=== PATIENT | female | born 1940 | race Caucasian/White ===

== ENCOUNTER → 2017-06-09 | Outpatient (CLI) | payer OTHER ==
[~2017-06-09] MED LIST: ACCUPRIL20 MG PO; LOMOTIL 0.025 M1 TA1 PO; LOZOL2.5 MG PO; QUINAPRIL20 MG PO; VERELAN SR 240240 MG PO
[2017-06-09 09:57] LABS: BASO % 0.6 % (0.0-1.0); EOS # 0.2 10*3/uL (0.0-0.4); HEMATOCRIT 34.3 % (37.0-47.0); HEMOGLOBIN 11.4 g/dl (12.0-16.0); LYMPH # 1.3 10*3/uL (1.3-4.4); LYMPH % 25.9 % (27.0-41.0); MEAN CELL VOLUME 90.7 fl (81.0-99.0); MEAN CORPUSCULAR HGB 30.2 pg (27.0-31.0); MEAN CORPUSCULAR HGB CONC 33.2 g/dl (33.0-37.0); MEAN PLATELET VOLUME 9.3 fl (9.6-12.3); MONO # 0.4 10*3/uL (0.1-1.0); MONO % 7.1 % (3.0-9.0); NEUT # 3.1 10*3/uL (2.3-7.9); PLATELET COUNT AUTOMATED 201 10*3/uL (130-400); RED BLOOD COUNT 3.78 10*6/uL (4.10-5.10); RED CELL DISTRI WIDTH 13.3 % (0-14.5)
[2017-06-09 10:11] LABS: ALBUMIN 3.9 gm/dl (3.1-4.5); ALKALINE PHOSPHATASE 59 U/L (45-117); BILIRUBIN, DIRECT 0.1 mg/dL (0.0-0.2); BILIRUBIN, TOTAL 0.6 mg/dl (0.2-1.0); BUN 16 mg/dl (7-24); CARBON DIOXIDE 29 mmol/L (21-32); CHLORIDE 106 mmol/L (98-107); CHOLESTEROL 156 mg/dL (<200); EST GLOM FILT AFRICAN AMERICAN > 60 ml/min; GLUCOSE 97 mg/dL (65-99); HDL CHOLESTEROL 61 mg/dl (40-60); LDL CHOLESTEROL 71 mg/dL (9-159); POTASSIUM 3.8 mmol/L (3.5-5.1); SGOT/AST 21 IU/L (3-35); SGPT/ALT 22 U/L (12-78); SODIUM 140 mmol/L (136-145); THYROXINE (T4) TOTAL 11.7 ug/dl (4.8-13.9); TOTAL PROTEIN 7.5 gm/dL (6.4-8.2); TRIGLYCERIDES 120 mg/dl (<150); VLDL CHOLESTEROL 24 mg/dL (6-40)
== END | disposition home or self-care (01) ==
LOC: LAB 09:14
PROVIDERS: Family Medicine
DX: Z00.01 Encounter for general adult medical examination with abnormal findings (principal); I10 Essential (primary) hypertension

== ENCOUNTER → 2017-07-25 | Outpatient (CLI) | payer OTHER ==
[2017-07-25 09:17] LABS: BASO % 0.6 % (0.0-1.0); EOS # 0.2 10*3/uL (0.0-0.4); EOS % 4.1 % (1.0-4.0); HEMATOCRIT 34.8 % (37.0-47.0); HEMOGLOBIN 11.6 g/dl (12.0-16.0); LYMPH # 1.1 10*3/uL (1.3-4.4); LYMPH % 21.6 % (27.0-41.0); MEAN CELL VOLUME 91.6 fl (81.0-99.0); MEAN CORPUSCULAR HGB 30.5 pg (27.0-31.0); MEAN CORPUSCULAR HGB CONC 33.3 g/dl (33.0-37.0); MEAN PLATELET VOLUME 9.2 fl (9.6-12.3); MONO # 0.3 10*3/uL (0.1-1.0); MONO % 6.4 % (3.0-9.0); NEUT # 3.4 10*3/uL (2.3-7.9); NEUT % 66.7 % (47.0-73.0); PLATELET COUNT AUTOMATED 194 10*3/uL (130-400); RED CELL DISTRI WIDTH 13.2 % (0-14.5); WHITE BLOOD COUNT 5.2 10*3/uL (4.8-10.8)
[2017-07-25 09:24] LABS: CREATININE 1.1 mg/dL (0.55-1.02); POTASSIUM 3.7 mmol/L (3.5-5.1)
== END | disposition home or self-care (01) ==
LOC: LAB 08:27
PROVIDERS: Family Medicine
DX: N28.9 Disorder of kidney and ureter, unspecified (principal); D64.9 Anemia, unspecified

== ENCOUNTER → 2017-09-15 | Outpatient (CLI) | payer OTHER ==
[2017-09-15 09:37] LABS: BASO # 0.1 10*3/uL (0.0-0.1); EOS # 0.2 10*3/uL (0.0-0.4); EOS % 3.5 % (1.0-4.0); HEMATOCRIT 35.1 % (37.0-47.0); HEMOGLOBIN 11.6 g/dl (12.0-16.0); LYMPH % 21.6 % (27.0-41.0); MEAN CELL VOLUME 91.6 fl (81.0-99.0); MEAN CORPUSCULAR HGB 30.3 pg (27.0-31.0); MEAN PLATELET VOLUME 8.7 fl (9.6-12.3); MONO # 0.3 10*3/uL (0.1-1.0); MONO % 6.2 % (3.0-9.0); NEUT # 3.3 10*3/uL (2.3-7.9); NEUT % 67.5 % (47.0-73.0); PLATELET COUNT AUTOMATED 161 10*3/uL (130-400); RED BLOOD COUNT 3.83 10*6/uL (4.10-5.10); RED CELL DISTRI WIDTH 13.2 % (0-14.5); WHITE BLOOD COUNT 4.8 10*3/uL (4.8-10.8)
[2017-09-15 09:53] LABS: BUN 15 mg/dl (7-24); CHLORIDE 106 mmol/L (98-107); CREATININE 0.91 mg/dL (0.55-1.02); SODIUM 140 mmol/L (136-145); TOTAL IRON BINDING CAPACITY 425 ug/dl (250-450)
== END | disposition home or self-care (01) ==
LOC: LAB 09:03
PROVIDERS: Family Medicine
DX: D64.9 Anemia, unspecified (principal); N28.9 Disorder of kidney and ureter, unspecified

== ENCOUNTER → 2017-12-24 | Outpatient (CLI) | payer OTHER ==
[2017-12-24 08:59] LABS: BASO % 0.7 % (0.0-1.0); EOS # 0.2 10*3/uL (0.0-0.4); EOS % 3.5 % (1.0-4.0); HEMOGLOBIN 11.5 g/dl (12.0-16.0); LYMPH # 0.9 10*3/uL (1.3-4.4); MEAN CELL VOLUME 92.3 fl (81.0-99.0); MEAN CORPUSCULAR HGB 30.3 pg (27.0-31.0); MEAN CORPUSCULAR HGB CONC 32.9 g/dl (33.0-37.0); MEAN PLATELET VOLUME 9.2 fl (9.6-12.3); MONO # 0.3 10*3/uL (0.1-1.0); MONO % 6.9 % (3.0-9.0); NEUT # 2.9 10*3/uL (2.3-7.9); NEUT % 67.4 % (47.0-73.0); PLATELET COUNT AUTOMATED 154 10*3/uL (130-400); RED BLOOD COUNT 3.79 10*6/uL (4.10-5.10); RED CELL DISTRI WIDTH 12.9 % (0-14.5); WHITE BLOOD COUNT 4.3 10*3/uL (4.8-10.8)
[2017-12-24 09:29] LABS: ALBUMIN 3.8 gm/dl (3.1-4.5); BUN 15 mg/dl (7-24); CHLORIDE 103 mmol/L (98-107); POTASSIUM 3.6 mmol/L (3.5-5.1); SODIUM 140 mmol/L (136-145)
[2017-12-24 09:33] LABS: ALKALINE PHOSPHATASE 66 U/L (45-117); BILIRUBIN, DIRECT 0.1 mg/dL (0.0-0.2); CREATININE 0.89 mg/dL (0.55-1.02); SGOT/AST 18 IU/L (3-35); SGPT/ALT 21 U/L (12-78); TOTAL IRON BINDING CAPACITY 377 ug/dl (250-450); TOTAL PROTEIN 7.3 gm/dL (6.4-8.2)
== END | disposition home or self-care (01) ==
LOC: LAB 08:38
PROVIDERS: Family Medicine
DX: I10 Essential (primary) hypertension (principal); D64.9 Anemia, unspecified

== ENCOUNTER 2018-02-12 17:26 | Inpatient (IN) | payer OTHER ==
[~2018-02-12] VITALS: Ht 162.5 cm; Wt 68.0 kg
[2018-02-12 17:28] VITALS: BP 218/110
[2018-02-12 17:57] LABS: BASO % 0.5 % (0.0-1.0); EOS # 0.1 10*3/uL (0.0-0.4); EOS % 0.9 % (1.0-4.0); HEMATOCRIT 40.8 % (37.0-47.0); HEMOGLOBIN 14.2 g/dl (12.0-16.0); LYMPH % 11.3 % (27.0-41.0); MEAN CELL VOLUME 88.9 fl (81.0-99.0); MEAN CORPUSCULAR HGB 30.9 pg (27.0-31.0); MEAN CORPUSCULAR HGB CONC 34.8 g/dl (33.0-37.0); MEAN PLATELET VOLUME 9.4 fl (9.6-12.3); MONO # 0.3 10*3/uL (0.1-1.0); MONO % 3.4 % (3.0-9.0); NEUT # 7.3 10*3/uL (2.3-7.9); NEUT % 83.7 % (47.0-73.0); PLATELET COUNT AUTOMATED 193 10*3/uL (130-400); RED BLOOD COUNT 4.59 10*6/uL (4.10-5.10); RED CELL DISTRI WIDTH 12.7 % (0-14.5); WHITE BLOOD COUNT 8.8 10*3/uL (4.8-10.8)
[2018-02-12 18:14] LABS: ACT PARTIAL THROMBO TIME 21.4 SECONDS (20.8-31.5); INTERNATIONAL NORM RATIO 0.9 (2.0-3.5)
[2018-02-12 18:15] LABS: ALBUMIN 4.7 gm/dl (3.1-4.5); ALKALINE PHOSPHATASE 80 U/L (45-117); BUN 16 mg/dl (7-24); CHLORIDE 101 mmol/L (98-107); CREATININE 0.99 mg/dL (0.55-1.02); LIPASE 204 U/L (73-393); POTASSIUM 3.5 mmol/L (3.5-5.1); SGOT/AST 22 IU/L (3-35); SGPT/ALT 20 U/L (12-78); SODIUM 137 mmol/L (136-145); TOTAL PROTEIN 8.3 gm/dL (6.4-8.2)
[2018-02-12 18:18] LABS: TROPONIN I < 0.015 ng/ml (<0.045)
[2018-02-12 18:54] VITALS: BP 200/108
[2018-02-12 19:23] VITALS: BP 204/104
[2018-02-12 20:04] VITALS: BP 91/50
[2018-02-12 20:20] VITALS: BP 187/92
[2018-02-12 20:25] VITALS: BP 152/88
[2018-02-13] VITALS (9 sets, daily range): BP systolic 150–224; BP diastolic 65–120
[2018-02-13 08:00] LABS: HEMATOCRIT 41.2 % (37.0-47.0); HEMOGLOBIN 13.7 g/dl (12.0-16.0); MEAN CELL VOLUME 91.6 fl (81.0-99.0); MEAN CORPUSCULAR HGB 30.4 pg (27.0-31.0); MEAN CORPUSCULAR HGB CONC 33.3 g/dl (33.0-37.0); MEAN PLATELET VOLUME 9.7 fl (9.6-12.3); PLATELET COUNT AUTOMATED 180 10*3/uL (130-400); RED CELL DISTRI WIDTH 13.1 % (0-14.5); WHITE BLOOD COUNT 9.8 10*3/uL (4.8-10.8)
[2018-02-13 08:27] LABS: PLATELET SUFFICIENCY NORMAL (NORMAL); TOTAL CELLS COUNTED 100 #CELLS
[2018-02-13 08:28] LABS: BUN 18 mg/dl (7-24); CHLORIDE 102 mmol/L (98-107); CHOLESTEROL 190 mg/dL (<200); CREATININE 0.93 mg/dL (0.55-1.02); PHOSPHOROUS 3.4 mg/dL (2.5-4.9); POTASSIUM 3.8 mmol/L (3.5-5.1); SODIUM 138 mmol/L (136-145); TRIGLYCERIDES 75 mg/dl (<150); VLDL CHOLESTEROL 15 mg/dL (6-40)
[2018-02-13 08:38] LABS: HDL CHOLESTEROL 78 mg/dl (40-60); LDL CHOLESTEROL 97 mg/dL (9-159)
[2018-02-13 08:55] LABS: VITAMIN D, 25-HYDROXY 43.5 ng/mL (30-100)
[2018-02-13 11:56] LABS: BILIRUBIN NEGATIVE (NEGATIVE); BLOOD NEGATIVE (NEGATIVE); CLARITY CLEAR (CLEAR); COLOR YELLOW (YELLOW); GLUCOSE NEGATIVE (NEGATIVE); KETONE TRACE (NEGATIVE); LEUKO ESTERASE NEGATIVE (NEGATIVE); NITRITE NEGATIVE (NEGATIVE); PH 5.5 (5.0-9.0); SPECIFIC GRAVITY >= 1.030 (1.005-1.030); UROBILINOGEN 0.2 E.U./dl (0.2-1.0)
[2018-02-13 12:14] LABS: BACTERIA TRACE; MUCOUS TRACE; YEAST TRACE
[2018-02-14] VITALS (11 sets, daily range): BP systolic 164–196; BP diastolic 82–98
[2018-02-14 07:26] LABS: BASO % 0.1 % (0.0-1.0); EOS % 0.2 % (1.0-4.0); HEMATOCRIT 37.5 % (37.0-47.0); HEMOGLOBIN 12.4 g/dl (12.0-16.0); LYMPH % 9.5 % (27.0-41.0); MEAN CELL VOLUME 91.9 fl (81.0-99.0); MEAN CORPUSCULAR HGB 30.4 pg (27.0-31.0); MEAN CORPUSCULAR HGB CONC 33.1 g/dl (33.0-37.0); MEAN PLATELET VOLUME 9.4 fl (9.6-12.3); MONO # 0.6 10*3/uL (0.1-1.0); MONO % 6.2 % (3.0-9.0); NEUT # 8.4 10*3/uL (2.3-7.9); NEUT % 83.6 % (47.0-73.0); PLATELET COUNT AUTOMATED 172 10*3/uL (130-400); RED BLOOD COUNT 4.08 10*6/uL (4.10-5.10); RED CELL DISTRI WIDTH 13.5 % (0-14.5)
[2018-02-14 07:36] LABS: BUN 22 mg/dl (7-24); CHLORIDE 104 mmol/L (98-107); CREATININE 0.85 mg/dL (0.55-1.02); POTASSIUM 3.6 mmol/L (3.5-5.1); SODIUM 141 mmol/L (136-145)
[2018-02-15] VITALS: BP 160/100; BP 187/92; BP 192/90
[2018-02-15 08:00] VITALS: BP 158/78
[2018-02-15 08:14] LABS: BASO % 0.3 % (0.0-1.0); EOS % 0.3 % (1.0-4.0); HEMATOCRIT 34.5 % (37.0-47.0); HEMOGLOBIN 11.2 g/dl (12.0-16.0); LYMPH # 1.3 10*3/uL (1.3-4.4); LYMPH % 14.2 % (27.0-41.0); MEAN CELL VOLUME 93.8 fl (81.0-99.0); MEAN CORPUSCULAR HGB 30.4 pg (27.0-31.0); MEAN CORPUSCULAR HGB CONC 32.5 g/dl (33.0-37.0); MEAN PLATELET VOLUME 9.6 fl (9.6-12.3); MONO # 0.7 10*3/uL (0.1-1.0); MONO % 7.5 % (3.0-9.0); NEUT # 6.8 10*3/uL (2.3-7.9); NEUT % 77.2 % (47.0-73.0); PLATELET COUNT AUTOMATED 154 10*3/uL (130-400); RED BLOOD COUNT 3.68 10*6/uL (4.10-5.10); RED CELL DISTRI WIDTH 13.6 % (0-14.5); WHITE BLOOD COUNT 8.8 10*3/uL (4.8-10.8)
[2018-02-15 08:42] LABS: ALBUMIN 3.7 gm/dl (3.1-4.5); BUN 21 mg/dl (7-24); CHLORIDE 109 mmol/L (98-107); CREATININE 0.79 mg/dL (0.55-1.02); PHOSPHOROUS 1.7 mg/dL (2.5-4.9); POTASSIUM 3.3 mmol/L (3.5-5.1); SGOT/AST 25 IU/L (3-35); SGPT/ALT 38 U/L (12-78); SODIUM 145 mmol/L (136-145); TOTAL PROTEIN 6.7 gm/dL (6.4-8.2)
[2018-02-15 08:43] LABS: ALKALINE PHOSPHATASE 78 U/L (45-117)
[2018-02-15 12:00] VITALS: BP 160/80
[2018-02-15 16:00] VITALS: BP 164/70
[2018-02-15 20:00] VITALS: BP 170/70
[2018-02-16] VITALS: BP 176/75
[2018-02-16 01:26] VITALS: BP 160/80
[2018-02-16 07:27] LABS: BASO % 0.5 % (0.0-1.0); EOS # 0.2 10*3/uL (0.0-0.4); EOS % 2.8 % (1.0-4.0); HEMATOCRIT 33.5 % (37.0-47.0); HEMOGLOBIN 11.1 g/dl (12.0-16.0); LYMPH # 1.4 10*3/uL (1.3-4.4); LYMPH % 23.5 % (27.0-41.0); MEAN CELL VOLUME 92.8 fl (81.0-99.0); MEAN CORPUSCULAR HGB 30.7 pg (27.0-31.0); MEAN CORPUSCULAR HGB CONC 33.1 g/dl (33.0-37.0); MONO # 0.5 10*3/uL (0.1-1.0); MONO % 7.7 % (3.0-9.0); NEUT # 3.9 10*3/uL (2.3-7.9); NEUT % 65.2 % (47.0-73.0); PLATELET COUNT AUTOMATED 136 10*3/uL (130-400); RED BLOOD COUNT 3.61 10*6/uL (4.10-5.10); RED CELL DISTRI WIDTH 12.8 % (0-14.5)
[2018-02-16 07:54] LABS: BUN 18 mg/dl (7-24); CHLORIDE 107 mmol/L (98-107); CREATININE 0.85 mg/dL (0.55-1.02); POTASSIUM 2.7 mmol/L (3.5-5.1); SODIUM 142 mmol/L (136-145)
[2018-02-16 08:00] VITALS: BP 210/90
[2018-02-16 12:00] VITALS: BP 170/86
[2018-02-16] MEDS ORDERED: APRESOLINE25 MG PO (12:45)
[2018-02-16] MEDS ORDERED: POTASSIUM CHLO20 ME3 PO (12:45)
[2018-02-16 14:00] VITALS: BP 172/92
== END 2018-02-16 15:31 | disposition home or self-care (01) | DRG 389 ==
LOC: ED 17:26 → 4E 18:18 → EDHOLD 18:18 → 4E 19:05
PROVIDERS: Emergency Medicine; Family Medicine; Internal Medicine; Student in an Organized Health Care Education/Training Program
PROC: 0D9670Z Drainage of Stomach with Drainage Device, Via Natural or Artificial Opening (ICD-10-PCS; principal; 2018-02-12)
DX: K56.609 Unspecified intestinal obstruction, unspecified as to partial versus complete obstruction (principal); E87.2 Acidosis; Z79.899 Other long term (current) drug therapy; D72.810 Lymphocytopenia; D72.9 Disorder of white blood cells, unspecified; I10 Essential (primary) hypertension; R73.9 Hyperglycemia, unspecified; I16.0 Hypertensive urgency; E87.6 Hypokalemia; D64.9 Anemia, unspecified; Z90.89 Acquired absence of other organs; Z82.49 Family history of ischemic heart disease and other diseases of the circulatory system; Z91.041 Radiographic dye allergy status

== ENCOUNTER 2018-02-19 10:53 | Emergency (ER) | payer OTHER ==
[~2018-02-19] VITALS: Ht 162.5 cm; Wt 69.4 kg
== END 2018-02-19 12:39 | disposition home or self-care (01) ==
LOC: ED 10:53
DX: I10 Essential (primary) hypertension (principal); Z90.89 Acquired absence of other organs; Z79.899 Other long term (current) drug therapy

== ENCOUNTER → 2018-02-19 | Outpatient (CLI) | payer OTHER ==
[~2018-02-19] MED LIST changes: +APRESOLINE25 MG PO; +POTASSIUM CHLO20 ME3 PO
[2018-02-19 10:28] LABS: BUN 15 mg/dl (7-24); CHLORIDE 104 mmol/L (98-107); CREATININE 0.93 mg/dL (0.55-1.02); POTASSIUM 3.2 mmol/L (3.5-5.1); SODIUM 141 mmol/L (136-145)
== END | disposition home or self-care (01) ==
LOC: LAB 09:20
PROVIDERS: Emergency Medicine
DX: E87.6 Hypokalemia (principal)

== ENCOUNTER → 2018-05-08 | Day surgery (SDC) | payer OTHER ==
[~2018-05-08] VITALS: Ht 162.5 cm; Wt 70.3 kg
[~2018-05-08] MED LIST changes: +INDAPAMIDE2.5 MG PO; +MAGBID ER84 MG PO; +PROTONIX40 MG PO
--- NOTE | ~2018-05-08 | O ---
[place], [place] OPERATIVE NOTE NAME: DEBBIE CERDA UNIT #: [id number] ROOM: DOCTOR: CARINA INGRAM MDNEW WOODSTOCKOU[place] BIRTHDATE: [birth year] DOS: 05/08/2018 HISTORY OF PRESENT ILLNESS: A 77-year-old patient who presented with chief complaint of upper GI distress, previous bowel obstruction, hospitalization and resolution. Symptomatology has been ambiguous with her esophagus and gastric pouch. We have been asked for the hospitalist service for evaluation of upper GI. PAST MEDICAL HISTORY: Associated hypertension, hemorrhoidectomy and renal insufficiency. PAST MEDICATIONS: Medications have been reviewed, devoid of nonsteroidal anti-inflammatory or steroidal anti-inflammatory. ALLERGIES: No known medications. PROCEDURE: Today's procedure part of investigation is panendoscopy plus biopsy plus esophageal balloon dilation to size 13.5 and biopsy of antrum. PREMEDICATION: Propofol. SCOPE: Olympus forward-viewing gastroscope Q10 video. REPORT: After putting the patient in left lateral position and application of lubricant to the scope, the scope was introduced. Thereafter, under direct visualization, advanced through the length of esophagus. The scope was tightly embedded with this esophagus diameter, which is extremely compromised to narrow size. This is particularly expressed in thoracic esophagus. Scope was negotiated into gastric pouch. A 2 cm hiatal hernia seen. Mild gastritis noticed. Antral biopsy obtained. After a balloon size 12-15 was utilized, 16 was too large for the diameter of existing stricture of the esophagus, therefore, we used a size 13.5 and swept throughout the length of the esophagus. Mucosal fracture was intentionally done and thoracic esophagus and lower esophagus was dilated to size 13.5. Optimal dilation could be at least 18-20. Photographic series from the event was obtained. The patient extubated, tolerated procedure well. IMPRESSION: Benign esophageal stricture dilated, status post balloon dilation to size 13.5, gastritis, status post biopsy. l PLAN AND DISCUSSION: This patient definitely requires a proton pump inhibitor to prevent acid reflux issues and therefore preventing her for further stricture of esophagus. I am going to use Protonix 40 mg daily. Antireflux with elevation of the head of the bed, Gaviscon as antacid of choice. Follow up routinely with you in office, p.r.n. visit with us in GI Clinic. Thank you very much indeed for your kind referral. [place], [place] OPERATIVE NOTE NAME: DEBBIE CERDA UNIT #: [id number] ROOM: DOCTOR: GAURAV INGRAM MD BIRTHDATE: [birth year] GAURAV INGRAM MD CM:OPRECORD:OPERATIVE NOTE [id number] ALISIA INGRAM MD (TED) 05/08/18 1445 interface
[2018-05-08 11:39] VITALS: BP 158/92
[2018-05-08 13:00] VITALS: BP 133/76
[2018-05-08 13:15] VITALS: BP 165/80
[2018-05-08 13:30] VITALS: BP 164/84
== END | disposition home or self-care (01) ==
LOC: SDC 05-05 12:30
DX: K29.50 Unspecified chronic gastritis without bleeding (principal); K22.2 Esophageal obstruction; K44.9 Diaphragmatic hernia without obstruction or gangrene; K21.9 Gastro-esophageal reflux disease without esophagitis; I10 Essential (primary) hypertension; N28.9 Disorder of kidney and ureter, unspecified; Z98.890 Other specified postprocedural states; Z79.899 Other long term (current) drug therapy

== ENCOUNTER → 2018-07-22 | Outpatient (CLI) | payer OTHER ==
[2018-07-22 09:42] LABS: CREATININE 1.16 mg/dL (0.55-1.02)
== END | disposition home or self-care (01) ==
LOC: LAB 09:04
PROVIDERS: Specialist
DX: C64.2 Malignant neoplasm of left kidney, except renal pelvis (principal)

== ENCOUNTER → 2018-09-23 | Outpatient (CLI) | payer OTHER ==
[2018-09-23 09:36] LABS: BASO % 0.7 % (0.0-1.0); EOS # 0.2 10*3/uL (0.0-0.4); EOS % 3.3 % (1.0-4.0); HEMATOCRIT 36.3 % (37.0-47.0); HEMOGLOBIN 12.3 g/dl (12.0-16.0); LYMPH # 1.5 10*3/uL (1.3-4.4); LYMPH % 26.8 % (27.0-41.0); MEAN CELL VOLUME 92.8 fl (81.0-99.0); MEAN CORPUSCULAR HGB 31.5 pg (27.0-31.0); MEAN CORPUSCULAR HGB CONC 33.9 g/dl (33.0-37.0); MEAN PLATELET VOLUME 9.7 fl (9.6-12.3); MONO # 0.3 10*3/uL (0.1-1.0); MONO % 5.8 % (3.0-9.0); NEUT # 3.5 10*3/uL (2.3-7.9); PLATELET COUNT AUTOMATED 176 10*3/uL (130-400); RED BLOOD COUNT 3.91 10*6/uL (4.10-5.10); RED CELL DISTRI WIDTH 12.4 % (0-14.5); WHITE BLOOD COUNT 5.5 10*3/uL (4.8-10.8)
[2018-09-23 09:57] LABS: ALBUMIN 4.3 gm/dl (3.1-4.5); BILIRUBIN, DIRECT 0.1 mg/dL (0.0-0.2); CREATININE 1.17 mg/dL (0.55-1.02); TOTAL PROTEIN 7.9 gm/dL (6.4-8.2)
[2018-09-23 10:02] LABS: POTASSIUM 3.4 mmol/L (3.5-5.1)
== END | disposition home or self-care (01) ==
LOC: LAB 09:00
PROVIDERS: Family Medicine
DX: I10 Essential (primary) hypertension (principal)

== ENCOUNTER → 2018-12-22 | Outpatient (CLI) | payer OTHER ==
[2018-12-22 08:56] LABS: BASO % 0.7 % (0.0-1.0); EOS # 0.2 10*3/uL (0.0-0.4); EOS % 2.6 % (1.0-4.0); HEMATOCRIT 39.6 % (37.0-47.0); HEMOGLOBIN 12.9 g/dl (12.0-16.0); LYMPH # 1.2 10*3/uL (1.3-4.4); LYMPH % 21.3 % (27.0-41.0); MEAN CELL VOLUME 95.2 fl (81.0-99.0); MEAN CORPUSCULAR HGB CONC 32.6 g/dl (33.0-37.0); MEAN PLATELET VOLUME 9.2 fl (9.6-12.3); MONO # 0.4 10*3/uL (0.1-1.0); MONO % 6.6 % (3.0-9.0); NEUT # 3.9 10*3/uL (2.3-7.9); NEUT % 68.5 % (47.0-73.0); PLATELET COUNT AUTOMATED 187 10*3/uL (130-400); RED BLOOD COUNT 4.16 10*6/uL (4.10-5.10); RED CELL DISTRI WIDTH 12.5 % (0-14.5); WHITE BLOOD COUNT 5.7 10*3/uL (4.8-10.8)
[2018-12-22 09:22] LABS: ALBUMIN 4.3 gm/dl (3.1-4.5); BILIRUBIN, DIRECT 0.1 mg/dL (0.0-0.2); CREATININE 1.08 mg/dL (0.55-1.02); POTASSIUM 3.8 mmol/L (3.5-5.1); TOTAL PROTEIN 7.8 gm/dL (6.4-8.2)
== END | disposition home or self-care (01) ==
LOC: LAB 08:24
PROVIDERS: Family Medicine
DX: I10 Essential (primary) hypertension (principal); N28.9 Disorder of kidney and ureter, unspecified

== ENCOUNTER 2019-07-16 20:22 | Inpatient (IN) | payer OTHER ==
[~2019-07-16] VITALS: Ht 162.6 cm; Wt 76.7 kg
--- NOTE | ~2019-07-16 | EKG ---
[place], [place] ELECTROCARDIOGRAM REPORT NAME: DEBBIE CERDA UNIT #: [id number] ROOM: 518 DOCTOR: EPIPHANY DRAFT REPORT BIRTHDATE: [birth year] [facility] Test Date: 2019-07-16 Test Time: 22:20:06 Pat Name: DEBBIE CERDA Department: Room: 518 Gender: F Pet Walker: Екатерина Leigh : 1940 Requested By: HOWARD FRANKLIN Order Number: [id number] Reading MD: Milka Tubbs MD Measurements Intervals [place] Rate: 67 P: 15 MT: 175 QRS: -43 QRSD: 106 T: 14 QT: 413 QTc: 436 Interpretive Statements Sinus rhythm Left anterior fascicular block Abnormal R-wave progression, late transition Left ventricular hypertrophy Baseline wander in lead(s) V5,V6 Electronically Signed On 07-17-2019 13:40:55 PDT by Milka Tubbs MD CM:EKGRPT:ELECTROCARDIOGRAM REPORT 1340 HOWARD FRANKLIN MD EPIPHANY DRAFT REPORT HOWARD FRANKLIN MD
[2019-07-16 21:15] LABS: BILIRUBIN NEGATIVE (NEGATIVE); BLOOD TRACE-INTACT (NEGATIVE); CLARITY CLEAR (CLEAR); COLOR YELLOW (YELLOW); GLUCOSE NEGATIVE (NEGATIVE); KETONE TRACE (NEGATIVE); LEUKO ESTERASE TRACE (NEGATIVE); NITRITE NEGATIVE (NEGATIVE); PH 5.5 (5.0-9.0); SPECIFIC GRAVITY >= 1.030 (1.005-1.030); UROBILINOGEN 0.2 E.U./dl (0.2-1.0)
[2019-07-16 21:24] LABS: BACTERIA 2+; EPITHELIAL CELLS 21-30
[2019-07-16 21:45] VITALS: BP 186/80
[2019-07-16 21:49] LABS: BASO % 0.5 % (0.0-1.0); EOS # 0.1 10*3/uL (0.0-0.4); EOS % 1.9 % (1.0-4.0); HEMATOCRIT 35.2 % (37.0-47.0); HEMOGLOBIN 11.5 g/dl (12.0-16.0); LYMPH # 0.7 10*3/uL (1.3-4.4); LYMPH % 11.2 % (27.0-41.0); MEAN CELL VOLUME 95.9 fl (81.0-99.0); MEAN CORPUSCULAR HGB 31.3 pg (27.0-31.0); MEAN CORPUSCULAR HGB CONC 32.7 g/dl (33.0-37.0); MEAN PLATELET VOLUME 9.1 fl (9.6-12.3); MONO # 0.4 10*3/uL (0.1-1.0); NEUT # 4.9 10*3/uL (2.3-7.9); NEUT % 80.1 % (47.0-73.0); PLATELET COUNT AUTOMATED 177 10*3/uL (130-400); RED BLOOD COUNT 3.67 10*6/uL (4.10-5.10); RED CELL DISTRI WIDTH 12.4 % (0-14.5); WHITE BLOOD COUNT 6.2 10*3/uL (4.8-10.8)
[2019-07-16 22:05] LABS: ALBUMIN 3.9 gm/dl (3.1-4.5); ALKALINE PHOSPHATASE 65 U/L (45-117); BUN 21 mg/dl (7-24); CHLORIDE 103 mmol/L (98-107); CREATININE 1.09 mg/dL (0.55-1.02); LIPASE 190 U/L (73-393); POTASSIUM 4.1 mmol/L (3.5-5.1); SGOT/AST 23 IU/L (3-35); SGPT/ALT 25 U/L (12-78); SODIUM 136 mmol/L (136-145); TOTAL PROTEIN 7.2 gm/dL (6.4-8.2)
[2019-07-16 22:07] LABS: TROPONIN I < 0.015 ng/ml (<0.045)
[2019-07-17 00:45] VITALS: BP 194/84
--- NOTE | 2019-07-17 01:20 | NUR ---
NOTIFIED OF BP 194/84. HYDRALIZINE TO BE ORDERED.
[2019-07-17] MEDS ORDERED: INDAPAMIDE2.5 MG PO (01:27)
[2019-07-17] MEDS ORDERED: MAGNESIUM250 M1 PO (01:28)
[2019-07-17] MEDS ORDERED: VERAPAMIL HCL120 M1 PO (01:29)
--- NOTE | 2019-07-17 01:40 | NUR ---
PER D/C HYDRALIZINE 10 MG AND ONLY TO GIVE HYDRALZINE 5 MG.
--- NOTE | 2019-07-17 02:12 | NUR ---
Time: 44 A 78 year old FEMALE admitted to 5E under services of CECIL SILVA DO. Pt. arrived via stretcher from ER. Chief complaint: PARTIAL OBSTRUCTION OF SMALL INTESTINE. ISABEL MORAN
--- NOTE | 2019-07-17 02:18 | NUR ---
MEDICATED WITH HYDRALIZINE FOR HIGH BP. WILL RECHECK BP FOR EFFECTIVENESS.
[2019-07-17 03:15] VITALS: BP 178/80
--- NOTE | 2019-07-17 03:30 | NUR ---
BP 178/80 NOTIFIED. NO NEW ORDERS RECEIVED. WILL CONTINUE TO MONITOR.
--- NOTE | 2019-07-17 04:56 | NUR ---
BP 174/82. NOTIFIED. HYDRALIZINE TO BE ORDERED.
[2019-07-17 04:59] VITALS: BP 174/82
--- NOTE | 2019-07-17 05:14 | NUR ---
PT MEDICATED WITH IV HYDRALAZINE. WILL RECHECK BP.
[2019-07-17 06:06] LABS: BASO % 0.6 % (0.0-1.0); EOS # 0.1 10*3/uL (0.0-0.4); HEMOGLOBIN 10.8 g/dl (12.0-16.0); LYMPH # 1.2 10*3/uL (1.3-4.4); MEAN CELL VOLUME 94.1 fl (81.0-99.0); MEAN CORPUSCULAR HGB 31.8 pg (27.0-31.0); MEAN CORPUSCULAR HGB CONC 33.8 g/dl (33.0-37.0); MONO # 0.4 10*3/uL (0.1-1.0); MONO % 7.8 % (3.0-9.0); NEUT # 3.3 10*3/uL (2.3-7.9); NEUT % 66.2 % (47.0-73.0); PLATELET COUNT AUTOMATED 168 10*3/uL (130-400); RED CELL DISTRI WIDTH 12.5 % (0-14.5)
[2019-07-17 06:15] VITALS: BP 162/78
--- NOTE | 2019-07-17 06:24 | NUR ---
NOTIFIED OF NEW CONSULT. WILL BE IN TO SEE PT IN A LITTLE WHILE. NO ORDERS RECEIVED.
--- NOTE | 2019-07-17 06:26 | NUR ---
NOTIFIED MED REC IS UP TO DATE AND OF NEW BP OF 162/78.
[2019-07-17 06:32] LABS: ALBUMIN 3.4 gm/dl (3.1-4.5); BUN 16 mg/dl (7-24); CHLORIDE 108 mmol/L (98-107); POTASSIUM 3.5 mmol/L (3.5-5.1); SODIUM 139 mmol/L (136-145); TRIGLYCERIDES 148 mg/dl (<150); VLDL CHOLESTEROL 30 mg/dL (6-40)
[2019-07-17 06:39] LABS: ALKALINE PHOSPHATASE 56 U/L (45-117); CHOLESTEROL 162 mg/dL (<200); FREE T4 1.06 ng/dl (0.76-1.46); HDL CHOLESTEROL 49 mg/dl (40-60); LDL CHOLESTEROL 83 mg/dL (9-159); PHOSPHOROUS 2.6 mg/dL (2.5-4.9); SGOT/AST 20 IU/L (3-35); SGPT/ALT 22 U/L (12-78); TOTAL PROTEIN 6.4 gm/dL (6.4-8.2)
[2019-07-17 07:17] LABS: VITAMIN D, 25-HYDROXY 33.9 ng/mL (30-100)
[2019-07-17 08:00] VITALS: BP 180/82
--- NOTE | 2019-07-17 09:57 | NUR ---
NOTFIED. DR. LUNA OF PATIENT HIGH BLOOD PRESSURE. TOLD TO ORDER 5MG OF HYDRALAZINE. ALSO STATED ITS OKAY TO GIVE PO BLOOD PRESSURE MEDICATIONS THIS MORNING. WILL CONTINUE TO MONITOR.
[2019-07-17 12:00] VITALS: BP 160/76
--- NOTE | 2019-07-17 16:46 | NUR ---
Discharge instructions reviewed with patient/family. Patient receptive and verbalizes understanding. Follow-up care arranged. Written instructions given to patient/family. PAUL BARDALES
--- NOTE | 2019-07-19 09:40 | NUR ---
PHYSICAL THERAPY Nursing screen received and chart reviewed. Patient discharged 07/17/19. Thank you. Gabrielle Latham,PT,DPT.
--- NOTE | 2019-07-19 17:05 | NUR ---
Nursing screen has been received. Patient has since been discharged prior to chart review. Thank you. Dian Kwok, OTR/L
== END 2019-07-17 16:46 | disposition home or self-care (01) | DRG 390 ==
LOC: ED 20:22 → EDHOLD 23:31 → 5E 07-17 00:04
PROVIDERS: Emergency Medicine Emergency Medical Services; Internal Medicine; ADMIT Internal Medicine
DX: K56.600 Partial intestinal obstruction, unspecified as to cause (principal); I12.9 Hypertensive chronic kidney disease with stage 1 through stage 4 chronic kidney disease, or unspecified chronic kidney disease; N28.89 Other specified disorders of kidney and ureter; D64.9 Anemia, unspecified; N18.3 Chronic kidney disease, stage 3 (moderate); R73.9 Hyperglycemia, unspecified; Z91.09 Other allergy status, other than to drugs and biological substances; Z82.49 Family history of ischemic heart disease and other diseases of the circulatory system; Z79.899 Other long term (current) drug therapy

== ENCOUNTER → 2019-11-12 | Outpatient (CLI) | payer OTHER ==
[~2019-11-12] MED LIST changes: +MAGNESIUM250 M1 PO; +VERAPAMIL HCL120 M1 PO
[2019-11-12 09:36] LABS: BASO % 0.8 % (0.0-1.0); EOS # 0.2 10*3/uL (0.0-0.4); EOS % 3.5 % (1.0-4.0); HEMATOCRIT 38.4 % (37.0-47.0); HEMOGLOBIN 12.6 g/dl (12.0-16.0); LYMPH # 0.9 10*3/uL (1.3-4.4); LYMPH % 19.2 % (27.0-41.0); MEAN CELL VOLUME 94.3 fl (81.0-99.0); MEAN CORPUSCULAR HGB CONC 32.8 g/dl (33.0-37.0); MEAN PLATELET VOLUME 9.4 fl (9.6-12.3); MONO # 0.4 10*3/uL (0.1-1.0); MONO % 7.2 % (3.0-9.0); NEUT # 3.4 10*3/uL (2.3-7.9); NEUT % 68.9 % (47.0-73.0); PLATELET COUNT AUTOMATED 179 10*3/uL (130-400); RED BLOOD COUNT 4.07 10*6/uL (4.10-5.10); RED CELL DISTRI WIDTH 12.2 % (0-14.5); WHITE BLOOD COUNT 4.9 10*3/uL (4.8-10.8)
[2019-11-12 09:50] LABS: BILIRUBIN, DIRECT 0.1 mg/dL (0.0-0.2); CREATININE 1.08 mg/dL (0.55-1.02); POTASSIUM 3.9 mmol/L (3.5-5.1); TOTAL PROTEIN 7.5 gm/dL (6.4-8.2)
[2019-11-12 09:56] LABS: THYROID STIM HORMONE (HS) 2.93 uIU/ml (0.358-4.75)
== END | disposition home or self-care (01) ==
LOC: LAB 08:48
PROVIDERS: Family Medicine
DX: I12.9 Hypertensive chronic kidney disease with stage 1 through stage 4 chronic kidney disease, or unspecified chronic kidney disease (principal); N18.9 Chronic kidney disease, unspecified; E55.9 Vitamin D deficiency, unspecified

== ENCOUNTER → 2019-11-23 | Outpatient (CLI) | payer OTHER | END | disposition home or self-care (01) | LOC: CARD 13:03 | DX: R01.1 Cardiac murmur, unspecified (principal) ==

== ENCOUNTER 2020-03-26 09:57 | Inpatient (IN) | payer OTHER ==
[~2020-03-26] VITALS: Ht 162.5 cm; Wt 80.3 kg
[2020-03-26 10:00] VITALS: BP 142/71
[2020-03-26 10:24] LABS: BASO % 0.4 % (0.0-1.0); EOS # 0.2 10*3/uL (0.0-0.4); EOS % 1.9 % (1.0-4.0); HEMATOCRIT 34.5 % (37.0-47.0); LYMPH # 1.6 10*3/uL (1.3-4.4); LYMPH % 16.7 % (27.0-41.0); MEAN CELL VOLUME 94.3 fl (81.0-99.0); MEAN CORPUSCULAR HGB 31.1 pg (27.0-31.0); MEAN PLATELET VOLUME 9.2 fl (9.6-12.3); MONO # 0.8 10*3/uL (0.1-1.0); MONO % 8.5 % (3.0-9.0); PLATELET COUNT AUTOMATED 187 10*3/uL (130-400); RED BLOOD COUNT 3.66 10*6/uL (4.10-5.10); RED CELL DISTRI WIDTH 12.4 % (0-14.5); WHITE BLOOD COUNT 9.7 10*3/uL (4.8-10.8)
[2020-03-26 10:39] LABS: ACT PARTIAL THROMBO TIME 29.1 SECONDS (20.0-32.1); INTERNATIONAL NORM RATIO 0.9 (2.0-3.5)
[2020-03-26 10:46] LABS: ALBUMIN 3.9 gm/dl (3.1-4.5); ALKALINE PHOSPHATASE 73 U/L (45-117); BUN 16 mg/dl (7-24); CHLORIDE 104 mmol/L (98-107); CREATININE 1.07 mg/dL (0.55-1.02); POTASSIUM 3.7 mmol/L (3.5-5.1); SGOT/AST 15 IU/L (3-35); SGPT/ALT 19 U/L (12-78); SODIUM 136 mmol/L (136-145); TOTAL PROTEIN 7.7 gm/dL (6.4-8.2)
[2020-03-26 10:48] LABS: TROPONIN I < 0.015 ng/ml (<0.045)
[2020-03-26 11:07] VITALS: BP 122/60
[2020-03-26 12:08] VITALS: BP 141/68
--- NOTE | 2020-03-26 14:24 | NUR ---
A 79, admitted to , under the services of JOSEF Sprague DO with a diagnosis of PULMONARY EMBOLISM. Chief complaint is SOB. Patient arrived via bed from ER. Monitor applied. Initial assessment completed. Vital signs taken and recorded. JOSEF SPRAGUE DO notified of admission to the unit. Orders received. See assessment for past medical history, medications and allergies. Patient and/or family oriented to unit. [facility] Clothing/patient valuable form completed. HIRA LEDESMA
[2020-03-26] MEDS ORDERED: POTASSIUM CHLO20 MEQ PO (14:50)
--- NOTE | 2020-03-26 14:50 | NUR ---
DR BOCANEGRA MADE AWARE OF UPDATED MED LIST
[2020-03-26 16:00] VITALS: BP 164/84
--- NOTE | 2020-03-26 16:30 | NUR ---
PATIENT RESTING QUIETLY IN BED. NO DISTRESS NOTED. RESPIRATIONS EASY, REGULAR ON RA. DENIES ANY SOB AT REST. WILL CONTINUE TO MONITOR. HEPARIN GTT MAINTAINED PER POLICY. CALL LIGHT WITHIN REACH.
[2020-03-26 16:55] VITALS: BP 156/79
--- NOTE | 2020-03-26 19:30 | NUR ---
REPORT RECEIVED FROM CORRINA HU. PT LYING IN BED TALKING ON PHONE. NO COMPLAINTS VOICED. CALL LIGHT IN REACH
[2020-03-26 20:00] VITALS: BP 188/72
--- NOTE | 2020-03-26 20:30 | NUR ---
DR. DYER NOTIFIED OF LAB UNABLE TO GET BLOOD FOR APTT. ORDERED TO ASK ICU TO TRY.
--- NOTE | 2020-03-26 20:45 | NUR ---
DR. DYER NOTIFIED OF ELEVTED BP. GAVE PO MEDICATION EARLY. NO OTHER ORDERS
--- NOTE | 2020-03-26 20:56 | NUR ---
DR. DYER NOTIFIED OF ICU UNABLE TO GET BLOOD. ORDERED TO HAVE ER TRY. IN THE MEAN TIME, ORDERED TO KEEP HEPARIN DRIP RUNNING AT CURRENT RATE.
--- NOTE | 2020-03-26 21:35 | NUR ---
ATTEMPTED TO CALL DR DYER WITH CRITICAL. NO ANSWER WILL TRY AGAIN
--- NOTE | 2020-03-26 21:46 | NUR ---
DR. DYER NOTIFIED OF 84.6 CRITICAL APTT. ORDERED TO STOP DRIP FOR 1 HOUR AND REDUCE RATE BY 3 UNITS PER PROTOCOL. ALSO ORDERED TO SCHEDULE NEXT PTT DRAW FOR 0530 WITH MORNING LABS. NO OTHER ORDERS AT THIS TIME.
--- NOTE | 2020-03-26 22:18 | NUR ---
NOCO GIVEN FOR COMPLAINTS OF LEFT SIDED CHEST PAIN. WILL MONITOR EFFECTIVENESS
--- NOTE | 2020-03-26 23:00 | NUR ---
HEPARIN DRIP RESTARTED AND RATE CHANGED. VERIFIED BY MAYTE HAJI
--- NOTE | 2020-03-26 23:00 | NUR ---
PER PT, NORCO WAS EFFECTIVE FOR PAIN
[2020-03-27] VITALS: BP 173/78
--- NOTE | 2020-03-27 02:00 | NUR ---
PT SLEEPING AT THIS TIME. RESPIRTAIONS EASY. HEPARIN DRIP INFUSING WITHOUT DIFFICULTY. NO S/S OF DISTRESS NOTED. CALL LIGHT IN REACH
--- NOTE | 2020-03-27 04:00 | NUR ---
SLEEPING. IV INFUSING WITHOUT DIFFICULY.
[2020-03-27 06:00] LABS: BASO % 0.4 % (0.0-1.0); EOS # 0.2 10*3/uL (0.0-0.4); HEMATOCRIT 30.5 % (37.0-47.0); LYMPH # 0.7 10*3/uL (1.3-4.4); LYMPH % 12.3 % (27.0-41.0); MEAN CELL VOLUME 95.6 fl (81.0-99.0); MEAN CORPUSCULAR HGB 31.3 pg (27.0-31.0); MEAN CORPUSCULAR HGB CONC 32.8 g/dl (33.0-37.0); MONO # 0.4 10*3/uL (0.1-1.0); MONO % 7.5 % (3.0-9.0); NEUT # 4.1 10*3/uL (2.3-7.9); NEUT % 76.4 % (47.0-73.0); PLATELET COUNT AUTOMATED 147 10*3/uL (130-400); RED BLOOD COUNT 3.19 10*6/uL (4.10-5.10); RED CELL DISTRI WIDTH 12.6 % (0-14.5); WHITE BLOOD COUNT 5.4 10*3/uL (4.8-10.8)
[2020-03-27 06:25] LABS: BUN 19 mg/dl (7-24); CHLORIDE 107 mmol/L (98-107); CHOLESTEROL 150 mg/dL (<200); CREATININE 0.95 mg/dL (0.55-1.02); HDL CHOLESTEROL 50 mg/dl (40-60); LDL CHOLESTEROL 80 mg/dL (9-159); POTASSIUM 4.2 mmol/L (3.5-5.1); SODIUM 141 mmol/L (136-145); TRIGLYCERIDES 100 mg/dl (<150); VLDL CHOLESTEROL 20 mg/dL (6-40)
--- NOTE | 2020-03-27 07:55 | NUR ---
RESTARTED HEPARIN GTT PER PROTOCOL. HEPARIN GTT INFUSING @ 12 UNITS/KG/HR/ 9.4 ML/HR.INITIAL ASSESSMENT COMPLETED. BP OBTAINED,168/72. PT DENIES CP/PRESSURE AT THIS TIME.PT DOES STATE THAT HER "PRESSURE IS GOOD FOR HER COMPARED TO LASTNIGHT".WILL CONTINUE TO MONITOR. CALL LIGHT IN REACH.
[2020-03-27 08:00] VITALS: BP 168/72
[2020-03-27] MEDS ORDERED: VERAPAMIL HCL120 M1 PO (08:53)
--- NOTE | 2020-03-27 09:05 | NUR ---
NOTIFIED DR BERRIOS OF UPDATED MED RECONCILIATION WELL PT AM BP OF 168/72.
--- NOTE | 2020-03-27 11:53 | NUR ---
[employer] Tutor in to talk to patient. Patient states lives at [facility] with ALONE WITH CHILDREN LIVING ON BOTH SIDES OF HER. There are 10 steps in the home. Physician: VIKAS Pharmacy: [facility] Home health services: NONE Patient's level of ADLs: INDEPENDENT Patient has working utilities: YES DME: NONE Follow-up physician's appointment after d/c: WILL BE MADE BY HOSPITALIST NURSE DIRECTOR ON DISCHARGE Does patient want to access PORTAL?: NO Discharge plan PT LIVES AT HOME ALONE AND STATES HER CHILDREN LIVE RIGHT BESIDE HER. DENIES SHE WILL HAVE ANY NEEDS ON DISCHARGE. STATES SHE WILL RETURN HOME WHEN MEDICALLY STABLE. WILL CONTINUE TO FOLLOW. STATES HER DAUGHTER WILL TRANSPORT HER HOME. LUCIANO MONROE
[2020-03-27 16:00] VITALS: BP 163/72
--- NOTE | 2020-03-27 17:50 | NUR ---
Hep Lock discontinued.PER PT REQUEST D/T PAINFUL SITE. Pressure applied. Sterile dressing applied. RAMILA KEATING
[2020-03-27 20:00] VITALS: BP 156/67
--- NOTE | 2020-03-27 20:00 | NUR ---
PATIENT RESTING ON BACK. DENIES ANY DISCOMFORT/NEEDS. SEE SHIFT ASSESSMENT. BED IN LOW, LOCKED POS, CALL LIGHT IN REACH.
--- NOTE | 2020-03-27 21:20 | NUR ---
PO MED TAKEN WITH EASE AND A SIP OF WATER. NO NEEDS MET. WILL CONT TO MONITOR.
[2020-03-28] VITALS: BP 132/58
--- NOTE | 2020-03-28 00:06 | NUR ---
PT SLEEPING; RESPIRATIONS EASY AND REGULAR ON ROOM AIR. CALL LIGHT IN REACH.
--- NOTE | 2020-03-28 03:58 | NUR ---
PT SLEEPING; NO DISTRESS ON ROOM AIR.
[2020-03-28 06:11] LABS: BASO % 0.8 % (0.0-1.0); EOS # 0.2 10*3/uL (0.0-0.4); EOS % 4.5 % (1.0-4.0); HEMATOCRIT 28.4 % (37.0-47.0); LYMPH # 0.5 10*3/uL (1.3-4.4); LYMPH % 13.8 % (27.0-41.0); MEAN CELL VOLUME 93.4 fl (81.0-99.0); MEAN CORPUSCULAR HGB 30.6 pg (27.0-31.0); MEAN CORPUSCULAR HGB CONC 32.7 g/dl (33.0-37.0); MEAN PLATELET VOLUME 9.3 fl (9.6-12.3); MONO # 0.4 10*3/uL (0.1-1.0); MONO % 10.1 % (3.0-9.0); NEUT # 2.7 10*3/uL (2.3-7.9); NEUT % 70.3 % (47.0-73.0); PLATELET COUNT AUTOMATED 178 10*3/uL (130-400); RED BLOOD COUNT 3.04 10*6/uL (4.10-5.10); RED CELL DISTRI WIDTH 12.4 % (0-14.5); WHITE BLOOD COUNT 3.8 10*3/uL (4.8-10.8)
[2020-03-28 06:27] LABS: CHLORIDE 106 mmol/L (98-107); POTASSIUM 3.9 mmol/L (3.5-5.1); SODIUM 140 mmol/L (136-145)
[2020-03-28 06:33] LABS: BUN 20 mg/dl (7-24)
[2020-03-28 07:07] LABS: CREATININE 0.97 mg/dL (0.55-1.02)
[2020-03-28 08:00] VITALS: BP 164/70
--- NOTE | 2020-03-28 08:53 | NUR ---
PT SITTING UP EATING BREAKFAST. NO DISTRESS NOTED. WILL MONITOR
[2020-03-28] MEDS ORDERED: XARELTO1 EACH PO (10:36)
--- NOTE | 2020-03-28 11:39 | NUR ---
Discharge instructions reviewed with patient/family. Patient receptive and verbalizes understanding. Follow-up care arranged. Written instructions given to patient/family. MAXIM CLARK
== END 2020-03-28 11:39 | disposition home or self-care (01) | DRG 175 ==
LOC: ED 09:57 → 5E 13:51 → EDHOLD 13:51 → 5E 14:00
PROVIDERS: Emergency Medicine; Family Medicine; ADMIT Internal Medicine
DX: I26.99 Other pulmonary embolism without acute cor pulmonale (principal); N17.0 Acute kidney failure with tubular necrosis; I82.412 Acute embolism and thrombosis of left femoral vein; J90 Pleural effusion, not elsewhere classified; I44.0 Atrioventricular block, first degree; N18.3 Chronic kidney disease, stage 3 (moderate); R73.9 Hyperglycemia, unspecified; D64.9 Anemia, unspecified; I12.9 Hypertensive chronic kidney disease with stage 1 through stage 4 chronic kidney disease, or unspecified chronic kidney disease; R00.1 Bradycardia, unspecified; R00.0 Tachycardia, unspecified; D72.819 Decreased white blood cell count, unspecified; Z91.09 Other allergy status, other than to drugs and biological substances; Z82.49 Family history of ischemic heart disease and other diseases of the circulatory system; Z85.528 Personal history of other malignant neoplasm of kidney; Z79.899 Other long term (current) drug therapy

== ENCOUNTER → 2020-05-01 | Outpatient (CLI) | payer OTHER ==
[~2020-05-01] MED LIST changes: +POTASSIUM CHLO20 MEQ PO; +XARELTO1 EACH PO
[2020-05-01 16:17] LABS: BASO % 0.8 % (0.0-1.0); EOS # 0.2 10*3/uL (0.0-0.4); EOS % 3.5 % (1.0-4.0); HEMATOCRIT 36.2 % (37.0-47.0); LYMPH # 1.3 10*3/uL (1.3-4.4); LYMPH % 25.9 % (27.0-41.0); MEAN CORPUSCULAR HGB 30.7 pg (27.0-31.0); MEAN CORPUSCULAR HGB CONC 32.3 g/dl (33.0-37.0); MONO # 0.4 10*3/uL (0.1-1.0); MONO % 8.1 % (3.0-9.0); NEUT # 3.1 10*3/uL (2.3-7.9); NEUT % 61.1 % (47.0-73.0); PLATELET COUNT AUTOMATED 218 10*3/uL (130-400); RED BLOOD COUNT 3.81 10*6/uL (4.10-5.10); WHITE BLOOD COUNT 5.1 10*3/uL (4.8-10.8)
[2020-05-01 16:46] LABS: ALBUMIN 4.2 gm/dl (3.1-4.5); CREATININE 1.26 mg/dL (0.55-1.02); TOTAL PROTEIN 7.7 gm/dL (6.4-8.2)
[2020-05-02 14:08] LABS: ANTICARDIOLIPIN AB, IGG, QN <9 GPL U/mL (0-14); ANTICARDIOLIPIN AB, IGM, QN <9 MPL U/mL (0-12); CARDIOLIPIN AB IGA <9 APL U/mL (0-11)
[2020-05-03 03:06] LABS: ANTI-THROMBIN III ACTIVITY 179 % (75-135); PROTEIN C, ACTIVITY 156 % (73-180); PROTEIN S - FUNCTIONAL 131 % (63-140)
[2020-05-03 07:06] LABS: BETA-2 GLYCOPROTEIN I AB,IGA 21 (0-25); BETA-2 GLYCOPROTEIN I AB,IGG <9 (0-20); BETA-2 GLYCOPROTEIN I AB,IGM 25 (0-32)
[2020-05-04 08:12] LABS: DVVTMIXRFX CHG
[2020-05-04 09:07] LABS: LUPUS REFLEX INTERPRETATION Comment: (.)
== END | disposition home or self-care (01) ==
LOC: LAB 15:29
PROVIDERS: Internal Medicine Hematology & Oncology
DX: D68.69 Other thrombophilia (principal); D64.9 Anemia, unspecified

== ENCOUNTER → 2020-08-21 | Outpatient (CLI) | payer OTHER ==
[2020-08-21 09:30] LABS: BASO % 0.7 % (0.0-1.0); EOS # 0.2 10*3/uL (0.0-0.4); EOS % 4.1 % (1.0-4.0); HEMATOCRIT 37.9 % (37.0-47.0); LYMPH # 1.7 10*3/uL (1.3-4.4); LYMPH % 28.4 % (27.0-41.0); MEAN CELL VOLUME 92.9 fl (81.0-99.0); MEAN CORPUSCULAR HGB 29.9 pg (27.0-31.0); MEAN CORPUSCULAR HGB CONC 32.2 g/dl (33.0-37.0); MEAN PLATELET VOLUME 9.1 fl (9.6-12.3); MONO # 0.4 10*3/uL (0.1-1.0); MONO % 7.4 % (3.0-9.0); NEUT # 3.4 10*3/uL (2.3-7.9); NEUT % 58.9 % (47.0-73.0); PLATELET COUNT AUTOMATED 201 10*3/uL (130-400); RED BLOOD COUNT 4.08 10*6/uL (4.10-5.10); RED CELL DISTRI WIDTH 12.9 % (0-14.5); WHITE BLOOD COUNT 5.8 10*3/uL (4.8-10.8)
[2020-08-21 10:06] LABS: CREATININE 1.2 mg/dL (0.55-1.02); POTASSIUM 3.8 mmol/L (3.5-5.1); TOTAL PROTEIN 7.7 gm/dL (6.4-8.2)
[2020-08-22 14:11] LABS: ANTICARDIOLIPIN AB, IGG, QN <9 GPL U/mL (0-14); ANTICARDIOLIPIN AB, IGM, QN 17 MPL U/mL (0-12); CARDIOLIPIN AB IGA <9 APL U/mL (0-11)
[2020-08-23 08:12] LABS: BETA-2 GLYCOPROTEIN I AB,IGA 21 (0-25); BETA-2 GLYCOPROTEIN I AB,IGG <9 (0-20); BETA-2 GLYCOPROTEIN I AB,IGM 31 (0-32)
[2020-08-23 14:11] LABS: PTT-LA 55.4 sec (0.0-51.9)
[2020-08-24 09:06] LABS: DVVTMIXRFX CHG; HEXAGONAL PHASE PHOSPHOLIPID 13 sec (0-11); LUPUS DRVVT 170.7 sec (0.0-47.0); PTT-LA MIX 49.1 sec (0.0-48.9)
[2020-08-24 10:08] LABS: LUPUS REFLEX INTERPRETATION Comment: (.)
[2020-08-24 14:40] LABS: HEXRFX RFX
== END | disposition home or self-care (01) ==
LOC: LAB 08:54
PROVIDERS: ATTEND Internal Medicine Hematology & Oncology
DX: I82.409 Acute embolism and thrombosis of unspecified deep veins of unspecified lower extremity (principal); I26.99 Other pulmonary embolism without acute cor pulmonale

== ENCOUNTER → 2020-12-08 | Outpatient (CLI) | payer OTHER ==
[2020-12-08 10:01] LABS: BASO % 0.6 % (0.0-1.0); EOS # 0.3 10*3/uL (0.0-0.4); EOS % 3.9 % (1.0-4.0); HEMATOCRIT 37.7 % (37.0-47.0); LYMPH # 1.5 10*3/uL (1.3-4.4); LYMPH % 23.8 % (27.0-41.0); MEAN CELL VOLUME 93.5 fl (81.0-99.0); MEAN CORPUSCULAR HGB 29.3 pg (27.0-31.0); MEAN CORPUSCULAR HGB CONC 31.3 g/dl (33.0-37.0); MEAN PLATELET VOLUME 9.7 fl (9.6-12.3); MONO # 0.5 10*3/uL (0.1-1.0); MONO % 7.2 % (3.0-9.0); NEUT # 4.1 10*3/uL (2.3-7.9); NEUT % 63.9 % (47.0-73.0); PLATELET COUNT AUTOMATED 228 10*3/uL (130-400); RED BLOOD COUNT 4.03 10*6/uL (4.10-5.10); RED CELL DISTRI WIDTH 13.1 % (0-14.5); WHITE BLOOD COUNT 6.4 10*3/uL (4.8-10.8)
[2020-12-08 10:27] LABS: CREATININE 1.18 mg/dL (0.55-1.02); POTASSIUM 3.7 mmol/L (3.5-5.1)
[2020-12-08 10:30] LABS: TOTAL PROTEIN 7.7 gm/dL (6.4-8.2)
== END | disposition home or self-care (01) ==
LOC: LAB 08:24
PROVIDERS: ATTEND Internal Medicine Hematology & Oncology
DX: I82.409 Acute embolism and thrombosis of unspecified deep veins of unspecified lower extremity (principal); I26.99 Other pulmonary embolism without acute cor pulmonale; I10 Essential (primary) hypertension; D64.9 Anemia, unspecified

== ENCOUNTER → 2021-02-05 | Outpatient (CLI) | payer OTHER ==
[2021-02-05 09:49] LABS: THYROXINE (T4) TOTAL 10.5 ug/dl (4.8-13.9)
[2021-02-05 09:54] LABS: THYROID STIM HORMONE (HS) 2.52 uIU/ml (0.358-4.75)
== END | disposition home or self-care (01) ==
LOC: LAB 08:26
PROVIDERS: ATTEND Family Medicine
DX: E78.5 Hyperlipidemia, unspecified (principal); E55.9 Vitamin D deficiency, unspecified; R53.83 Other fatigue

== ENCOUNTER → 2021-05-28 | Outpatient (CLI) | payer OTHER ==
[2021-05-28 08:12] LABS: BASO % 0.5 % (0.0-1.0); EOS # 0.2 10*3/uL (0.0-0.4); EOS % 3.8 % (1.0-4.0); HEMATOCRIT 34.8 % (37.0-47.0); LYMPH # 1.5 10*3/uL (1.3-4.4); LYMPH % 25.8 % (27.0-41.0); MEAN CORPUSCULAR HGB 29.7 pg (27.0-31.0); MEAN CORPUSCULAR HGB CONC 31.9 g/dl (33.0-37.0); MEAN PLATELET VOLUME 8.9 fl (9.6-12.3); MONO # 0.4 10*3/uL (0.1-1.0); MONO % 7.2 % (3.0-9.0); NEUT # 3.6 10*3/uL (2.3-7.9); NEUT % 62.2 % (47.0-73.0); PLATELET COUNT AUTOMATED 214 10*3/uL (130-400); RED BLOOD COUNT 3.74 10*6/uL (4.10-5.10); RED CELL DISTRI WIDTH 13.2 % (0-14.5); WHITE BLOOD COUNT 5.8 10*3/uL (4.8-10.8)
[2021-05-28 08:51] LABS: POTASSIUM 3.9 mmol/L (3.5-5.1)
[2021-05-28 09:18] LABS: ALBUMIN 3.8 gm/dl (3.1-4.5); CREATININE 1.08 mg/dL (0.55-1.02)
== END | disposition home or self-care (01) ==
LOC: LAB 07:42
PROVIDERS: ATTEND Internal Medicine Hematology & Oncology
DX: D50.9 Iron deficiency anemia, unspecified (principal); I26.99 Other pulmonary embolism without acute cor pulmonale; I82.409 Acute embolism and thrombosis of unspecified deep veins of unspecified lower extremity

== ENCOUNTER → 2021-10-08 | Outpatient (CLI) | payer OTHER ==
[2021-10-08 09:21] LABS: BASO # 0.1 10*3/uL (0.0-0.1); BASO % 0.7 % (0.0-1.0); EOS # 0.3 10*3/uL (0.0-0.4); EOS % 4.5 % (1.0-4.0); HEMATOCRIT 36.8 % (37.0-47.0); LYMPH # 1.5 10*3/uL (1.3-4.4); LYMPH % 21.8 % (27.0-41.0); MEAN CELL VOLUME 96.6 fl (81.0-99.0); MEAN CORPUSCULAR HGB CONC 32.1 g/dl (33.0-37.0); MONO # 0.5 10*3/uL (0.1-1.0); MONO % 6.6 % (3.0-9.0); NEUT # 4.5 10*3/uL (2.3-7.9); NEUT % 65.7 % (47.0-73.0); PLATELET COUNT AUTOMATED 227 10*3/uL (130-400); RED BLOOD COUNT 3.81 10*6/uL (4.10-5.10); RED CELL DISTRI WIDTH 13.3 % (0-14.5); WHITE BLOOD COUNT 6.9 10*3/uL (4.8-10.8)
[2021-10-08 10:34] LABS: ALBUMIN 3.7 gm/dl (3.1-4.5); CREATININE 1.15 mg/dL (0.55-1.02); TOTAL PROTEIN 7.1 gm/dL (6.4-8.2)
== END | disposition home or self-care (01) ==
LOC: LAB 08:45
PROVIDERS: ATTEND Family Medicine
DX: I10 Essential (primary) hypertension (principal); D64.9 Anemia, unspecified

== ENCOUNTER → 2021-11-15 | Outpatient (CLI) | payer OTHER ==
[2021-11-15 09:43] LABS: BASO # 0.1 10*3/uL (0.0-0.1); BASO % 0.7 % (0.0-1.0); EOS # 0.2 10*3/uL (0.0-0.4); HEMATOCRIT 36.4 % (37.0-47.0); LYMPH # 1.7 10*3/uL (1.3-4.4); LYMPH % 23.1 % (27.0-41.0); MEAN CELL VOLUME 94.3 fl (81.0-99.0); MEAN CORPUSCULAR HGB 30.3 pg (27.0-31.0); MEAN CORPUSCULAR HGB CONC 32.1 g/dl (33.0-37.0); MONO # 0.5 10*3/uL (0.1-1.0); MONO % 6.1 % (3.0-9.0); NEUT # 4.9 10*3/uL (2.3-7.9); NEUT % 66.4 % (47.0-73.0); PLATELET COUNT AUTOMATED 254 10*3/uL (130-400); RED BLOOD COUNT 3.86 10*6/uL (4.10-5.10); RED CELL DISTRI WIDTH 12.9 % (0-14.5); WHITE BLOOD COUNT 7.4 10*3/uL (4.8-10.8)
[2021-11-15 11:09] LABS: ALBUMIN 3.7 gm/dl (3.1-4.5); CREATININE 1.14 mg/dL (0.55-1.02); POTASSIUM 3.8 mmol/L (3.5-5.1)
[2021-11-15 11:11] LABS: TOTAL PROTEIN 6.9 gm/dL (6.4-8.2)
[2021-11-15 11:17] LABS: FERRITIN 14.3 ng/mL (10.0-291.0)
== END | disposition home or self-care (01) ==
LOC: LAB 08:50
PROVIDERS: ATTEND Internal Medicine Hematology & Oncology
DX: I26.99 Other pulmonary embolism without acute cor pulmonale (principal); I82.409 Acute embolism and thrombosis of unspecified deep veins of unspecified lower extremity; D64.9 Anemia, unspecified; R53.83 Other fatigue

== ENCOUNTER 2021-12-16 02:03 | Inpatient (IN) | payer OTHER ==
[2021-12-16] VITALS (13 sets, daily range): BP systolic 155–218; BP diastolic 69–104
[~2021-12-16] VITALS: Ht 162.6 cm; Wt 79.0 kg
[2021-12-16 03:30] LABS: BASO % 0.1 % (0.0-1.0); EOS % 0.1 % (1.0-4.0); HEMATOCRIT 35.8 % (37.0-47.0); LYMPH # 0.9 10*3/uL (1.3-4.4); MEAN CELL VOLUME 91.3 fl (81.0-99.0); MEAN CORPUSCULAR HGB 30.4 pg (27.0-31.0); MEAN CORPUSCULAR HGB CONC 33.2 g/dl (33.0-37.0); MEAN PLATELET VOLUME 8.8 fl (9.6-12.3); MONO # 0.2 10*3/uL (0.1-1.0); MONO % 2.2 % (3.0-9.0); NEUT # 8.2 10*3/uL (2.3-7.9); NEUT % 87.2 % (47.0-73.0); PLATELET COUNT AUTOMATED 263 10*3/uL (130-400); RED BLOOD COUNT 3.92 10*6/uL (4.10-5.10); RED CELL DISTRI WIDTH 12.8 % (0-14.5); WHITE BLOOD COUNT 9.4 10*3/uL (4.8-10.8)
[2021-12-16 04:02] LABS: CREATININE 1.18 mg/dL (0.55-1.02); TOTAL PROTEIN 7.3 gm/dL (6.4-8.2)
[2021-12-16 04:18] LABS: BILIRUBIN Negative (Negative); BLOOD Negative (Negative); CLARITY Clear (Clear); COLOR Yellow (Yellow); GLUCOSE Negative (Negative); KETONE Trace (Negative); LEUKO ESTERASE Negative (Negative); NITRITE Negative (Negative); SPECIFIC GRAVITY 1.015 (1.001-1.030); UROBILINOGEN 0.2 E.U./dl (0.0-1.0)
[2021-12-16] MEDS ORDERED: FEROSUL325 M1 PO (04:37)
[2021-12-16] MEDS ORDERED: QUINAPRIL20 MG PO (04:38)
[2021-12-16] MEDS ORDERED: XARE20MG PO (04:39)
[2021-12-16] MEDS ORDERED: VERAPAMIL HCL120 M1 PO (04:41)
[2021-12-16 05:11] LABS: PH 8.5 (4.5-8.0)
[2021-12-16 05:13] LABS: WBC 0-2 wbc/hpf (0-5)
[2021-12-16 05:14] LABS: BACTERIA TRACE
[2021-12-16] MEDS ORDERED: VITAMIN D3125 MC1 PO (11:04)
[2021-12-16 11:47] LABS: ACT PARTIAL THROMBO TIME 27.3 SECONDS (20.0-32.1); INTERNATIONAL NORM RATIO 1.1 (2.0-3.5)
[2021-12-17] VITALS (7 sets, daily range): BP systolic 165–200; BP diastolic 68–104
[2021-12-17 06:05] LABS: BUN 13 mg/dl (7-24); CHLORIDE 114 mmol/L (98-107); CREATININE 0.88 mg/dL (0.55-1.02); POTASSIUM 3.2 mmol/L (3.5-5.1); SODIUM 142 mmol/L (136-145)
[2021-12-17 06:57] LABS: BASO % 0.4 % (0.0-1.0); EOS # 0.1 10*3/uL (0.0-0.4); LYMPH # 1.4 10*3/uL (1.3-4.4); LYMPH % 25.1 % (27.0-41.0); MEAN CORPUSCULAR HGB 30.6 pg (27.0-31.0); MEAN CORPUSCULAR HGB CONC 31.7 g/dl (33.0-37.0); MEAN PLATELET VOLUME 9.5 fl (9.6-12.3); MONO # 0.5 10*3/uL (0.1-1.0); MONO % 8.9 % (3.0-9.0); NEUT # 3.4 10*3/uL (2.3-7.9); NEUT % 63.2 % (47.0-73.0); PLATELET COUNT AUTOMATED 202 10*3/uL (130-400); RED BLOOD COUNT 3.01 10*6/uL (4.10-5.10); WHITE BLOOD COUNT 5.4 10*3/uL (4.8-10.8)
[2021-12-17 07:00] LABS: MEAN CELL VOLUME 96.3 fl (81.0-99.0)
[2021-12-18] VITALS: BP 151/61
[2021-12-18 06:27] LABS: BASO % 0.7 % (0.0-1.0); EOS # 0.2 10*3/uL (0.0-0.4); EOS % 3.6 % (1.0-4.0); HEMATOCRIT 28.2 % (37.0-47.0); LYMPH # 1.2 10*3/uL (1.3-4.4); LYMPH % 26.5 % (27.0-41.0); MEAN CELL VOLUME 94.6 fl (81.0-99.0); MEAN CORPUSCULAR HGB 30.2 pg (27.0-31.0); MEAN CORPUSCULAR HGB CONC 31.9 g/dl (33.0-37.0); MEAN PLATELET VOLUME 9.1 fl (9.6-12.3); MONO # 0.4 10*3/uL (0.1-1.0); MONO % 8.2 % (3.0-9.0); NEUT # 2.7 10*3/uL (2.3-7.9); NEUT % 60.6 % (47.0-73.0); PLATELET COUNT AUTOMATED 190 10*3/uL (130-400); RED BLOOD COUNT 2.98 10*6/uL (4.10-5.10); RED CELL DISTRI WIDTH 12.5 % (0-14.5); WHITE BLOOD COUNT 4.5 10*3/uL (4.8-10.8)
[2021-12-18 06:36] LABS: CHLORIDE 111 mmol/L (98-107); POTASSIUM 3.4 mmol/L (3.5-5.1); SODIUM 141 mmol/L (136-145)
[2021-12-18 06:46] LABS: ALKALINE PHOSPHATASE 43 U/L (45-117); BUN 13 mg/dl (7-24); CREATININE 0.92 mg/dL (0.55-1.02); SGOT/AST 18 IU/L (3-35); SGPT/ALT 22 U/L (12-78); TOTAL PROTEIN 5.4 gm/dL (6.4-8.2)
[2021-12-18 08:00] VITALS: BP 180/82
[2021-12-18] MEDS ORDERED: AMLODIPINE BESYL5 MG PO (12:51)
[2021-12-18 12:54] VITALS: BP 206/84
[2021-12-18 14:54] VITALS: BP 160/80
== END 2021-12-18 15:18 | disposition home or self-care (01) | DRG 389 ==
LOC: ED 02:03 → 4E 07:39 → EDHOLD 07:39 → 4E 10:19
PROVIDERS: Emergency Medicine; Internal Medicine; Student in an Organized Health Care Education/Training Program; ADMIT Emergency Medicine; ATTEND Emergency Medicine
DX: K56.699 Other intestinal obstruction unspecified as to partial versus complete obstruction (principal); E87.2 Acidosis; D68.2 Hereditary deficiency of other clotting factors; I16.0 Hypertensive urgency; I10 Essential (primary) hypertension; R73.9 Hyperglycemia, unspecified; Z88.8 Allergy status to other drugs, medicaments and biological substances; Z79.899 Other long term (current) drug therapy

== ENCOUNTER → 2022-01-22 | Outpatient (CLI) | payer OTHER ==
[~2022-01-22] MED LIST changes: +AMLODIPINE BESYL5 MG PO; +FEROSUL325 M1 PO; +VITAMIN D3125 MC1 PO; +XARE20MG PO
[2022-01-22 08:41] LABS: BASO % 0.4 % (0.0-1.0); EOS # 0.2 10*3/uL (0.0-0.4); EOS % 2.7 % (1.0-4.0); HEMATOCRIT 35.9 % (37.0-47.0); LYMPH # 1.7 10*3/uL (1.3-4.4); LYMPH % 25.9 % (27.0-41.0); MEAN CORPUSCULAR HGB 30.1 pg (27.0-31.0); MEAN CORPUSCULAR HGB CONC 32.3 g/dl (33.0-37.0); MEAN PLATELET VOLUME 8.8 fl (9.6-12.3); MONO # 0.5 10*3/uL (0.1-1.0); MONO % 7.8 % (3.0-9.0); NEUT # 4.2 10*3/uL (2.3-7.9); NEUT % 62.8 % (47.0-73.0); PLATELET COUNT AUTOMATED 261 10*3/uL (130-400); RED BLOOD COUNT 3.86 10*6/uL (4.10-5.10); WHITE BLOOD COUNT 6.7 10*3/uL (4.8-10.8)
[2022-01-22 09:01] LABS: ALKALINE PHOSPHATASE 53 U/L (45-117); BUN 18 mg/dl (7-24); CHLORIDE 107 mmol/L (98-107); CHOLESTEROL 174 mg/dL (<200); LDL CHOLESTEROL 88 mg/dL (9-159); POTASSIUM 4.3 mmol/L (3.5-5.1); SGOT/AST 19 IU/L (3-35); SGPT/ALT 19 U/L (12-78); SODIUM 138 mmol/L (136-145); THYROXINE (T4) TOTAL 12.4 ug/dl (4.8-13.9); TOTAL PROTEIN 6.9 gm/dL (6.4-8.2); TRIGLYCERIDES 141 mg/dl (<150)
== END | disposition home or self-care (01) ==
LOC: LAB 08:19
PROVIDERS: ATTEND Family Medicine
DX: I10 Essential (primary) hypertension (principal); E55.9 Vitamin D deficiency, unspecified; D68.9 Coagulation defect, unspecified

== ENCOUNTER → 2022-05-07 | Outpatient (CLI) | payer OTHER ==
[2022-05-07 08:51] LABS: BASO % 0.6 % (0.0-1.0); EOS # 0.2 10*3/uL (0.0-0.4); EOS % 3.1 % (1.0-4.0); HEMATOCRIT 36.3 % (37.0-47.0); LYMPH # 1.7 10*3/uL (1.3-4.4); LYMPH % 25.3 % (27.0-41.0); MEAN CELL VOLUME 90.5 fl (81.0-99.0); MEAN CORPUSCULAR HGB 28.9 pg (27.0-31.0); MEAN PLATELET VOLUME 8.9 fl (9.6-12.3); MONO # 0.4 10*3/uL (0.1-1.0); MONO % 6.3 % (3.0-9.0); NEUT # 4.4 10*3/uL (2.3-7.9); PLATELET COUNT AUTOMATED 259 10*3/uL (130-400); RED BLOOD COUNT 4.01 10*6/uL (4.10-5.10); RED CELL DISTRI WIDTH 13.6 % (0-14.5); WHITE BLOOD COUNT 6.8 10*3/uL (4.8-10.8)
[2022-05-07 09:08] LABS: CREATININE 1.21 mg/dL (0.55-1.02); POTASSIUM 3.8 mmol/L (3.5-5.1); TOTAL PROTEIN 6.7 gm/dL (6.4-8.2)
[2022-05-13 15:06] LABS: METHYLMALONIC ACID 660 nmol/L (0-378)
== END | disposition home or self-care (01) ==
LOC: LAB 08:26
PROVIDERS: ATTEND Internal Medicine Hematology & Oncology
DX: I82.409 Acute embolism and thrombosis of unspecified deep veins of unspecified lower extremity (principal); I26.99 Other pulmonary embolism without acute cor pulmonale; D64.9 Anemia, unspecified

== ENCOUNTER → 2022-09-16 | Outpatient (CLI) | payer OTHER ==
[2022-09-16 10:29] LABS: BASO % 0.5 % (0.0-1.0); EOS # 0.2 10*3/uL (0.0-0.4); EOS % 2.7 % (1.0-4.0); HEMATOCRIT 34.7 % (37.0-47.0); LYMPH # 1.4 10*3/uL (1.3-4.4); LYMPH % 21.7 % (27.0-41.0); MEAN CELL VOLUME 91.8 fl (81.0-99.0); MEAN CORPUSCULAR HGB 29.1 pg (27.0-31.0); MEAN CORPUSCULAR HGB CONC 31.7 g/dl (33.0-37.0); MEAN PLATELET VOLUME 9.1 fl (9.6-12.3); MONO # 0.4 10*3/uL (0.1-1.0); MONO % 6.7 % (3.0-9.0); NEUT # 4.4 10*3/uL (2.3-7.9); NEUT % 67.9 % (47.0-73.0); PLATELET COUNT AUTOMATED 262 10*3/uL (130-400); RED BLOOD COUNT 3.78 10*6/uL (4.10-5.10); RED CELL DISTRI WIDTH 13.4 % (0-14.5); WHITE BLOOD COUNT 6.4 10*3/uL (4.8-10.8)
[2022-09-16 10:44] LABS: CREATININE 1.28 mg/dL (0.55-1.02); POTASSIUM 3.9 mmol/L (3.5-5.1); TOTAL PROTEIN 6.9 gm/dL (6.4-8.2)
== END | disposition home or self-care (01) ==
LOC: LAB 09:48
PROVIDERS: ATTEND Family Medicine
DX: R73.9 Hyperglycemia, unspecified (principal)

== ENCOUNTER → 2022-11-11 | Outpatient (CLI) | payer OTHER ==
[2022-11-11 09:56] LABS: BASO % 0.7 % (0.0-1.0); EOS # 0.2 10*3/uL (0.0-0.4); EOS % 3.2 % (1.0-4.0); HEMATOCRIT 34.9 % (37.0-47.0); LYMPH # 1.7 10*3/uL (1.3-4.4); LYMPH % 28.8 % (27.0-41.0); MEAN CELL VOLUME 90.6 fl (81.0-99.0); MEAN CORPUSCULAR HGB 28.1 pg (27.0-31.0); MEAN CORPUSCULAR HGB CONC 30.9 g/dl (33.0-37.0); MEAN PLATELET VOLUME 9.1 fl (9.6-12.3); MONO # 0.4 10*3/uL (0.1-1.0); MONO % 6.2 % (3.0-9.0); NEUT # 3.6 10*3/uL (2.3-7.9); NEUT % 60.8 % (47.0-73.0); PLATELET COUNT AUTOMATED 260 10*3/uL (130-400); RED BLOOD COUNT 3.85 10*6/uL (4.10-5.10); RED CELL DISTRI WIDTH 13.8 % (0-14.5)
[2022-11-11 10:14] LABS: ALKALINE PHOSPHATASE 53 U/L (46-116); BUN 16 mg/dl (9-23); CHLORIDE 104 mmol/L (98-107); POTASSIUM 3.9 mmol/L (3.4-5.1); SGPT/ALT 12 U/L (10-49); TOTAL PROTEIN 6.4 gm/dL (6.0-8.0)
[2022-11-13 11:07] LABS: METHYLMALONIC ACID 341 nmol/L (0-378)
== END | disposition home or self-care (01) ==
LOC: LAB 08:58
PROVIDERS: ATTEND Internal Medicine Hematology & Oncology
DX: I26.99 Other pulmonary embolism without acute cor pulmonale (principal); I82.409 Acute embolism and thrombosis of unspecified deep veins of unspecified lower extremity; D64.9 Anemia, unspecified

== ENCOUNTER → 2023-01-06 | Outpatient (CLI) | payer MEDICARE ==
[2023-01-06 09:42] LABS: BASO % 0.4 % (0.0-1.0); EOS # 0.2 10*3/uL (0.0-0.4); EOS % 2.9 % (1.0-4.0); HEMATOCRIT 36.8 % (37.0-47.0); LYMPH # 1.2 10*3/uL (1.3-4.4); LYMPH % 23.2 % (27.0-41.0); MEAN CELL VOLUME 95.1 fl (81.0-99.0); MEAN CORPUSCULAR HGB 30.2 pg (27.0-31.0); MEAN CORPUSCULAR HGB CONC 31.8 g/dl (33.0-37.0); MEAN PLATELET VOLUME 9.1 fl (9.6-12.3); MONO # 0.3 10*3/uL (0.1-1.0); MONO % 5.7 % (3.0-9.0); NEUT # 3.4 10*3/uL (2.3-7.9); NEUT % 67.4 % (47.0-73.0); PLATELET COUNT AUTOMATED 204 10*3/uL (130-400); RED BLOOD COUNT 3.87 10*6/uL (4.10-5.10); RED CELL DISTRI WIDTH 15.2 % (0-14.5); WHITE BLOOD COUNT 5.1 10*3/uL (4.8-10.8)
[2023-01-06 10:05] LABS: ALKALINE PHOSPHATASE 48 U/L (46-116); BUN 15 mg/dl (9-23); CHLORIDE 107 mmol/L (98-107); CHOLESTEROL 165 mg/dL (<200); LDL CHOLESTEROL 83 mg/dL (9-159); POTASSIUM 3.6 mmol/L (3.4-5.1); SGPT/ALT 15 U/L (10-49); THYROID STIM HORMONE (HS) 3.717 uIU/ml (0.550-4.780); THYROXINE (T4) TOTAL 9.7 ug/dl (4.5-10.9); TOTAL PROTEIN 6.3 gm/dL (6.0-8.0); TRIGLYCERIDES 154 mg/dl (<150)
[2023-01-06 10:37] LABS: VITAMIN D, 25-HYDROXY 71.9 ng/mL (30-100)
== END | disposition home or self-care (01) ==
LOC: LAB 09:02
PROVIDERS: ATTEND Family Medicine
DX: I10 Essential (primary) hypertension (principal); E55.9 Vitamin D deficiency, unspecified

== ENCOUNTER → 2023-02-10 | Outpatient (CLI) | payer MEDICARE ==
[2023-02-10 10:23] LABS: BASO % 0.5 % (0.0-1.0); EOS # 0.1 10*3/uL (0.0-0.4); EOS % 2.4 % (1.0-4.0); HEMATOCRIT 34.5 % (37.0-47.0); LYMPH # 1.4 10*3/uL (1.3-4.4); LYMPH % 24.4 % (27.0-41.0); MEAN CELL VOLUME 96.1 fl (81.0-99.0); MEAN CORPUSCULAR HGB 30.6 pg (27.0-31.0); MEAN CORPUSCULAR HGB CONC 31.9 g/dl (33.0-37.0); MONO # 0.4 10*3/uL (0.1-1.0); MONO % 6.8 % (3.0-9.0); NEUT # 3.9 10*3/uL (2.3-7.9); NEUT % 65.6 % (47.0-73.0); PLATELET COUNT AUTOMATED 244 10*3/uL (130-400); RED BLOOD COUNT 3.59 10*6/uL (4.10-5.10); RED CELL DISTRI WIDTH 13.3 % (0-14.5); WHITE BLOOD COUNT 5.9 10*3/uL (4.8-10.8)
== END | disposition home or self-care (01) ==
LOC: LAB 09:11
PROVIDERS: ATTEND Internal Medicine Hematology & Oncology
DX: D50.9 Iron deficiency anemia, unspecified (principal); I26.99 Other pulmonary embolism without acute cor pulmonale; I82.409 Acute embolism and thrombosis of unspecified deep veins of unspecified lower extremity

== ENCOUNTER → 2023-03-03 | Outpatient (CLI) | payer MEDICARE ==
[~2023-03-03] MED LIST changes: +LISINOPRIL20 MG PO; +RAMIPRIL10 MG PO
[2023-03-03 09:58] LABS: BASO % 0.8 % (0.0-1.0); EOS # 0.2 10*3/uL (0.0-0.4); HEMATOCRIT 34.7 % (37.0-47.0); LYMPH # 1.5 10*3/uL (1.3-4.4); LYMPH % 27.6 % (27.0-41.0); MEAN CELL VOLUME 93.5 fl (81.0-99.0); MEAN CORPUSCULAR HGB 30.5 pg (27.0-31.0); MEAN CORPUSCULAR HGB CONC 32.6 g/dl (33.0-37.0); MEAN PLATELET VOLUME 8.8 fl (9.6-12.3); MONO # 0.5 10*3/uL (0.1-1.0); MONO % 8.5 % (3.0-9.0); NEUT # 3.2 10*3/uL (2.3-7.9); NEUT % 59.5 % (47.0-73.0); PLATELET COUNT AUTOMATED 256 10*3/uL (130-400); RED BLOOD COUNT 3.71 10*6/uL (4.10-5.10); RED CELL DISTRI WIDTH 12.7 % (0-14.5); WHITE BLOOD COUNT 5.3 10*3/uL (4.8-10.8)
[2023-03-03 10:29] LABS: ALKALINE PHOSPHATASE 50 U/L (46-116); BUN 12 mg/dl (9-23); CHLORIDE 104 mmol/L (98-107); SGPT/ALT 21 U/L (10-49); TOTAL PROTEIN 6.4 gm/dL (6.0-8.0)
== END | disposition home or self-care (01) ==
LOC: LAB 09:29
PROVIDERS: ATTEND Internal Medicine
DX: I16.0 Hypertensive urgency (principal); K56.609 Unspecified intestinal obstruction, unspecified as to partial versus complete obstruction

== ENCOUNTER → 2023-04-07 | Outpatient (CLI) | payer MEDICARE ==
[2023-04-07 10:11] LABS: BASO % 0.4 % (0.0-1.0); EOS # 0.2 10*3/uL (0.0-0.4); EOS % 2.9 % (1.0-4.0); HEMATOCRIT 35.5 % (37.0-47.0); LYMPH # 1.9 10*3/uL (1.3-4.4); LYMPH % 27.1 % (27.0-41.0); MEAN CELL VOLUME 92.7 fl (81.0-99.0); MEAN CORPUSCULAR HGB 28.7 pg (27.0-31.0); MEAN PLATELET VOLUME 8.7 fl (9.6-12.3); MONO # 0.4 10*3/uL (0.1-1.0); NEUT # 4.4 10*3/uL (2.3-7.9); NEUT % 63.3 % (47.0-73.0); PLATELET COUNT AUTOMATED 256 10*3/uL (130-400); RED BLOOD COUNT 3.83 10*6/uL (4.10-5.10); RED CELL DISTRI WIDTH 12.9 % (0-14.5)
== END | disposition home or self-care (01) ==
LOC: LAB 09:46
PROVIDERS: ATTEND Family Medicine
DX: D64.9 Anemia, unspecified (principal)

== ENCOUNTER → 2023-04-28 | Outpatient (CLI) | payer OTHER ==
[2023-04-28 09:41] LABS: BASO % 0.5 % (0.0-1.0); EOS # 0.2 10*3/uL (0.0-0.4); HEMATOCRIT 34.9 % (37.0-47.0); LYMPH # 1.4 10*3/uL (1.3-4.4); LYMPH % 23.4 % (27.0-41.0); MEAN CELL VOLUME 89.7 fl (81.0-99.0); MEAN CORPUSCULAR HGB CONC 31.2 g/dl (33.0-37.0); MEAN PLATELET VOLUME 8.9 fl (9.6-12.3); MONO # 0.4 10*3/uL (0.1-1.0); MONO % 6.3 % (3.0-9.0); NEUT # 3.9 10*3/uL (2.3-7.9); NEUT % 66.5 % (47.0-73.0); PLATELET COUNT AUTOMATED 247 10*3/uL (130-400); RED BLOOD COUNT 3.89 10*6/uL (4.10-5.10); RED CELL DISTRI WIDTH 13.1 % (0-14.5); WHITE BLOOD COUNT 5.9 10*3/uL (4.8-10.8)
== END | disposition home or self-care (01) ==
LOC: LAB 02:07
PROVIDERS: ATTEND Internal Medicine Hematology & Oncology
DX: I82.409 Acute embolism and thrombosis of unspecified deep veins of unspecified lower extremity (principal); I26.99 Other pulmonary embolism without acute cor pulmonale; D50.9 Iron deficiency anemia, unspecified

== ENCOUNTER → 2023-07-09 | Outpatient (CLI) | payer OTHER ==
[2023-07-09 08:19] LABS: BASO # 0.1 10*3/uL (0.0-0.1); EOS # 0.2 10*3/uL (0.0-0.4); EOS % 4.9 % (1.0-4.0); HEMATOCRIT 37.1 % (37.0-47.0); LYMPH # 1.2 10*3/uL (1.3-4.4); LYMPH % 25.2 % (27.0-41.0); MEAN CELL VOLUME 97.6 fl (81.0-99.0); MEAN CORPUSCULAR HGB 32.4 pg (27.0-31.0); MEAN CORPUSCULAR HGB CONC 33.2 g/dl (33.0-37.0); MEAN PLATELET VOLUME 8.9 fl (9.6-12.3); MONO # 0.4 10*3/uL (0.1-1.0); MONO % 7.8 % (3.0-9.0); NEUT % 60.3 % (47.0-73.0); PLATELET COUNT AUTOMATED 193 10*3/uL (130-400); RED CELL DISTRI WIDTH 16.3 % (0-14.5); WHITE BLOOD COUNT 4.9 10*3/uL (4.8-10.8)
[2023-07-09 08:46] LABS: ALKALINE PHOSPHATASE 56 U/L (46-116); BUN 14 mg/dl (9-23); CHLORIDE 109 mmol/L (98-107); POTASSIUM 3.8 mmol/L (3.4-5.1); SGPT/ALT 16 U/L (10-49); TOTAL PROTEIN 6.5 gm/dL (6.0-8.0)
== END | disposition home or self-care (01) ==
LOC: LAB 07:58
PROVIDERS: ATTEND Family Medicine
DX: I10 Essential (primary) hypertension (principal); R73.9 Hyperglycemia, unspecified

== ENCOUNTER → 2023-08-11 | Outpatient (CLI) | payer MEDICARE ==
[2023-08-11 08:16] LABS: BASO # 0.1 10*3/uL (0.0-0.1); BASO % 0.8 % (0.0-1.0); EOS # 0.2 10*3/uL (0.0-0.4); EOS % 3.4 % (1.0-4.0); LYMPH # 1.4 10*3/uL (1.3-4.4); LYMPH % 23.6 % (27.0-41.0); MEAN CORPUSCULAR HGB 32.2 pg (27.0-31.0); MEAN CORPUSCULAR HGB CONC 32.5 g/dl (33.0-37.0); MONO # 0.4 10*3/uL (0.1-1.0); MONO % 6.4 % (3.0-9.0); PLATELET COUNT AUTOMATED 213 10*3/uL (130-400); RED BLOOD COUNT 4.04 10*6/uL (4.10-5.10); WHITE BLOOD COUNT 6.1 10*3/uL (4.8-10.8)
== END | disposition home or self-care (01) ==
LOC: LAB 07:46
PROVIDERS: ATTEND Physician Assistant
DX: D50.9 Iron deficiency anemia, unspecified (principal); D64.9 Anemia, unspecified; I82.409 Acute embolism and thrombosis of unspecified deep veins of unspecified lower extremity; I26.99 Other pulmonary embolism without acute cor pulmonale

== ENCOUNTER → 2023-10-24 | Outpatient (CLI) | payer MEDICARE ==
[2023-10-24 10:04] LABS: BASO % 0.8 % (0.0-1.0); EOS # 0.2 10*3/uL (0.0-0.4); EOS % 4.1 % (1.0-4.0); HEMATOCRIT 35.5 % (37.0-47.0); LYMPH # 1.4 10*3/uL (1.3-4.4); LYMPH % 28.5 % (27.0-41.0); MEAN CELL VOLUME 97.8 fl (81.0-99.0); MEAN CORPUSCULAR HGB 30.9 pg (27.0-31.0); MEAN CORPUSCULAR HGB CONC 31.5 g/dl (33.0-37.0); MEAN PLATELET VOLUME 9.1 fl (9.6-12.3); MONO # 0.4 10*3/uL (0.1-1.0); MONO % 7.6 % (3.0-9.0); NEUT # 2.9 10*3/uL (2.3-7.9); NEUT % 58.4 % (47.0-73.0); PLATELET COUNT AUTOMATED 226 10*3/uL (130-400); RED BLOOD COUNT 3.63 10*6/uL (4.10-5.10); RED CELL DISTRI WIDTH 12.2 % (0-14.5); WHITE BLOOD COUNT 4.9 10*3/uL (4.8-10.8)
== END | disposition home or self-care (01) ==
LOC: LAB 00:22
PROVIDERS: ATTEND Internal Medicine Hematology & Oncology
DX: I26.99 Other pulmonary embolism without acute cor pulmonale (principal); I82.409 Acute embolism and thrombosis of unspecified deep veins of unspecified lower extremity; D64.9 Anemia, unspecified; D50.9 Iron deficiency anemia, unspecified

== ENCOUNTER → 2024-02-10 | Outpatient (CLI) | payer MEDICARE ==
[2024-02-10 10:22] LABS: BASO % 0.6 % (0.0-1.0); EOS # 0.2 10*3/uL (0.0-0.4); EOS % 2.6 % (1.0-4.0); HEMATOCRIT 37.7 % (37.0-47.0); LYMPH # 1.5 10*3/uL (1.3-4.4); LYMPH % 23.6 % (27.0-41.0); MEAN CELL VOLUME 99.7 fl (81.0-99.0); MEAN CORPUSCULAR HGB CONC 32.1 g/dl (33.0-37.0); MONO # 0.5 10*3/uL (0.1-1.0); MONO % 7.7 % (3.0-9.0); NEUT # 4.2 10*3/uL (2.3-7.9); NEUT % 64.6 % (47.0-73.0); PLATELET COUNT AUTOMATED 222 10*3/uL (130-400); RED BLOOD COUNT 3.78 10*6/uL (4.10-5.10); RED CELL DISTRI WIDTH 12.3 % (0-14.5); WHITE BLOOD COUNT 6.5 10*3/uL (4.8-10.8)
[2024-02-10 10:55] LABS: ALKALINE PHOSPHATASE 53 U/L (46-116); BUN 18 mg/dl (9-23); CHLORIDE 107 mmol/L (98-107); POTASSIUM 4.1 mmol/L (3.4-5.1); SGPT/ALT 14 U/L (5-49); THYROXINE (T4) TOTAL 9.3 ug/dl (4.5-10.9); TOTAL PROTEIN 6.6 gm/dL (6.0-8.0)
== END | disposition home or self-care (01) ==
LOC: LAB 09:44
PROVIDERS: ATTEND Family Medicine
DX: I10 Essential (primary) hypertension (principal); D64.9 Anemia, unspecified; R53.83 Other fatigue

== ENCOUNTER → 2024-02-19 | Outpatient (CLI) | payer MEDICARE ==
[2024-02-19 10:23] LABS: BASO % 0.4 % (0.0-1.0); EOS # 0.2 10*3/uL (0.0-0.4); EOS % 2.5 % (1.0-4.0); HEMATOCRIT 36.7 % (37.0-47.0); LYMPH # 1.9 10*3/uL (1.3-4.4); LYMPH % 26.9 % (27.0-41.0); MEAN CELL VOLUME 98.7 fl (81.0-99.0); MEAN CORPUSCULAR HGB CONC 32.4 g/dl (33.0-37.0); MEAN PLATELET VOLUME 8.6 fl (9.6-12.3); MONO # 0.5 10*3/uL (0.1-1.0); MONO % 6.5 % (3.0-9.0); NEUT # 4.5 10*3/uL (2.3-7.9); NEUT % 63.1 % (47.0-73.0); PLATELET COUNT AUTOMATED 211 10*3/uL (130-400); RED BLOOD COUNT 3.72 10*6/uL (4.10-5.10); RED CELL DISTRI WIDTH 11.7 % (0-14.5); WHITE BLOOD COUNT 7.1 10*3/uL (4.8-10.8)
[2024-02-19 11:04] LABS: ALKALINE PHOSPHATASE 50 U/L (46-116); BUN 21 mg/dl (9-23); CHLORIDE 102 mmol/L (98-107); POTASSIUM 4.1 mmol/L (3.4-5.1); SGPT/ALT 16 U/L (5-49); TOTAL PROTEIN 6.6 gm/dL (6.0-8.0)
== END | disposition home or self-care (01) ==
LOC: LAB 10:09
PROVIDERS: ATTEND Physician Assistant
DX: I82.409 Acute embolism and thrombosis of unspecified deep veins of unspecified lower extremity (principal); I26.99 Other pulmonary embolism without acute cor pulmonale; D64.9 Anemia, unspecified; D50.9 Iron deficiency anemia, unspecified

== ENCOUNTER → 2024-05-31 | Outpatient (CLI) | payer MEDICARE ==
[2024-05-31 09:47] LABS: BASO % 0.4 % (0.0-1.0); EOS # 0.2 10*3/uL (0.0-0.4); HEMATOCRIT 36.8 % (37.0-47.0); LYMPH # 1.6 10*3/uL (1.3-4.4); LYMPH % 22.8 % (27.0-41.0); MEAN CELL VOLUME 95.1 fl (81.0-99.0); MEAN CORPUSCULAR HGB 29.5 pg (27.0-31.0); MONO # 0.5 10*3/uL (0.1-1.0); MONO % 7.1 % (3.0-9.0); NEUT # 4.7 10*3/uL (2.3-7.9); NEUT % 66.3 % (47.0-73.0); PLATELET COUNT AUTOMATED 223 10*3/uL (130-400); RED BLOOD COUNT 3.87 10*6/uL (4.10-5.10)
[2024-05-31 10:37] LABS: ALKALINE PHOSPHATASE 52 U/L (46-116); BUN 11 mg/dl (9-23); CHLORIDE 107 mmol/L (98-107); POTASSIUM 3.7 mmol/L (3.4-5.1); SGPT/ALT 12 U/L (5-49); TOTAL PROTEIN 6.6 gm/dL (6.0-8.0)
== END | disposition home or self-care (01) ==
LOC: LAB 09:22
PROVIDERS: ATTEND Family Medicine
DX: I10 Essential (primary) hypertension (principal); R73.9 Hyperglycemia, unspecified

== ENCOUNTER → 2024-06-09 | Outpatient (CLI) | payer MEDICARE ==
[2024-06-09 11:00] LABS: BASO # 0.1 10*3/uL (0.0-0.1); BASO % 0.7 % (0.0-1.0); EOS # 0.2 10*3/uL (0.0-0.4); EOS % 3.5 % (1.0-4.0); HEMATOCRIT 34.4 % (37.0-47.0); LYMPH # 1.7 10*3/uL (1.3-4.4); LYMPH % 25.1 % (27.0-41.0); MEAN CELL VOLUME 93.7 fl (81.0-99.0); MEAN PLATELET VOLUME 9.2 fl (9.6-12.3); MONO # 0.5 10*3/uL (0.1-1.0); MONO % 7.2 % (3.0-9.0); NEUT # 4.3 10*3/uL (2.3-7.9); NEUT % 62.9 % (47.0-73.0); PLATELET COUNT AUTOMATED 243 10*3/uL (130-400); RED BLOOD COUNT 3.67 10*6/uL (4.10-5.10); RED CELL DISTRI WIDTH 13.1 % (0-14.5); WHITE BLOOD COUNT 6.8 10*3/uL (4.8-10.8)
== END | disposition home or self-care (01) ==
LOC: LAB 10:02
PROVIDERS: ATTEND Internal Medicine Hematology & Oncology
DX: I26.99 Other pulmonary embolism without acute cor pulmonale (principal); I82.409 Acute embolism and thrombosis of unspecified deep veins of unspecified lower extremity; D64.9 Anemia, unspecified; D50.9 Iron deficiency anemia, unspecified